=== PATIENT | male | born 1940 | race Caucasian/White ===

== ENCOUNTER 2020-11-18 13:36 | Inpatient (IN) | payer MEDICARE, SELFPAY ==
--- NOTE | ~2020-11-18 | XR_ITS ---
EXAMINATION: XR CHEST CLINICAL INFORMATION: Weakness COMPARISON: Previous chest x-ray September 2018 TECHNIQUE: Frontal view of the chest was obtained. FINDINGS: The cardiac and mediastinal contours are stable. There are increased markings at the lung bases probably representing subsegmental atelectasis. The lungs are otherwise clear. There is no pleural effusion or pneumothorax. There are degenerative changes of the spine. XR/XR chest 1V IMPRESSION: Increased markings at the lung bases probably representing atelectasis.
--- NOTE | ~2020-11-18 | US_ITS ---
EXAMINATION: US VENOUS ULTRASOUND WITH DOPPLER LOWER EXTREMITY, BILATERAL CLINICAL INFORMATION: Bilateral leg pain and swelling. COMPARISON: None TECHNIQUE: Ultrasound of the deep veins is performed from the hip to the calf with compression sonography and color and pulse Doppler assessment. Spectral analysis with color-flow imaging is performed. FINDINGS: RIGHT: There is normal venous compression and respiratory variation and augmented flow. The visualized common femoral vein, superficial femoral vein, profunda femoral vein, popliteal vein, and the trifurcation region shows no evidence of deep venous thrombosis. There is no significant popliteal fossa cyst. Bandaging in the right calf region limits evaluation of right peroneal vein. LEFT: There is normal venous compression and respiratory variation and augmented flow. The visualized common femoral vein, superficial femoral vein, profunda femoral vein, popliteal vein, and the trifurcation region shows no evidence of deep venous thrombosis. There is no significant popliteal fossa cyst. Left renal vein is not seen. If the patient's symptoms persist, followup ultrasound in 5 days 7 days might be of value to exclude proximal propagation from a non-visualized calf vein. US/US venous duplex LE BI IMPRESSION: No DVT demonstrated in the bilateral lower extremity.
--- NOTE | 2020-11-18 13:51 | ED.WEAKNESS ---
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, CHF, HTN, diabetes here with 4 days of odor from wounds, weakness, unable to get up, redness streaking up left leg, nausea Complaint: generalized weakness Onset (ago): day(s) (4) Duration: constant Location: generalized Migration: none Severity: moderate Quality: aching Relieving factors: none Exacerbating factors: movement and exertion Context: recent illness Associated symptoms: fever/chills, loss of appetite, nausea/vomiting and rash Related Data Home Medications Medication Instructions Recorded Confirmed albuterol sulfate 2 inh INHALATION Q4H PRN 11/18/20 11/18/20 atorvastatin 80 mg PO DAILY 11/18/20 11/18/20 budesonide [Pulmicort Flexhaler] 2 puff PO BID 11/18/20 11/18/20 clopidogrel 75 mg PO DAILY 11/18/20 11/18/20 fluticasone propionate 2 spray INTRANASAL DAILY PRN 11/18/20 11/18/20 furosemide 120 mg PO DAILY 11/18/20 11/18/20 insulin aspart U-100 [Novolog 4 - 8 unit SUBCUT DIRECTED 11/18/20 11/18/20 Flexpen U-100 Insulin] insulin detemir U-100 [Levemir 18 unit SUBCUT QAM 11/18/20 11/18/20 FlexTouch U-100 Insuln] insulin detemir U-100 [Levemir 48 unit SUBCUT QPM 11/18/20 11/18/20 FlexTouch U-100 Insuln] losartan 50 mg PO DAILY 11/18/20 11/18/20 metformin 1,000 mg PO DAILY 11/18/20 11/18/20 pantoprazole 40 mg PO DAILY 11/18/20 11/18/20 prednisone 5 mg PO DAILY 11/18/20 11/18/20 sitagliptin [Januvia] 25 mg PO DAILY 11/18/20 11/18/20 Allergies Allergy/AdvReac Type Severity Reaction Status Date / Time No Known Allergies Allergy Verified 11/18/20 14:00 [No Known Allergies*] Review of Systems Review of Systems: Constitutional : No Fever, pos Chills ENT/Mouth : No sore throat, No Rhinorrhea Eyes: No Eye Pain, No Swelling, No Redness Cardiovascular : No Chest Pain, No SOB Respiratory : No Cough, No Sputum Gastrointestinal : pos Nausea, No Vomiting, No Diarrhea, No abdominal Pain Genitourinary : No Dysuria, No Hematuria Musculoskeletal : No joint pain, No Myalgias, No Joint Swelling Skin : pos Skin Lesions, positive skin rash Neuro : pos Weakness, No Numbness, No Headache Psych : No Anxiety, No Depression Heme/Lymph: No Bruising, No Bleeding,No Lymphadenopathy Endocrine : No Polyuria, No Polydipsia All other systems reviewed and are negative [facility] Past Medical History Attestation statement: The following information was validated with the patient. Medical History CHF (congestive heart failure) COPD (chronic obstructive pulmonary disease) Diabetes High cholesterol HTN (hypertension) Myocardial infarct Social History Social History (Updated 11/18/20 @ 14:11 by Eleanor Powell DO) Alcohol intake: never Smoking Status: Former smoker Advance Directives: No Advance Directives Information Provided: No Physical Exam Vital Signs: Vital Signs: Last Vital Signs Temp 99.1 F 11/18/20 13:53 Pulse 88 11/18/20 15:49 Resp 21 H 11/18/20 15:49 BP 129/40 L 11/18/20 15:49 Pulse Ox 97 11/18/20 15:49 Body Mass Index 41.5 Appearance: Alert. Oriented X3. Anxious mild acute distress. Eyes: Pupils equal, round and reactive to light. ENT: Pharynx normal. Neck: Normal inspection. Neck supple. CVS: Normal heart rate and rhythm. Pulses normal. Respiratory: No respiratory distress. Breath sounds decreased throughout Abdomen: Soft and nontender. Obese Buttocks: macerated but no deep wounds, scrotal exam one area of break down upper R scrotum but no erythema no purulence, no pain no crepitus Skin: Skin warm and dry. Normal skin color. Normal skin turgor. Extremities: 3 to 4+ bilateral red warm legs from foot to knees with large ulceration R lateral leg - with dressing noted, foul odor, hot to touch, poor foot care Neuro: Oriented X 3. No motor deficit. No sensory deficit. 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0) % Plt Count (160-400) X10*3/uL MPV (9.4-12.4) fL Immature Gran % (Auto) (0.0-0.4) % Neut % (Auto) (45-73) % Lymph % (Auto) (20-40) % [place] % (Auto) (2-11) % Eos % (Auto) (0-4) % Baso % (Auto) (0-2) % Lymph # (Auto) (1.2-4.9) X10*3/uL [place] # (Auto) (0.1-1.2) X10*3/uL Eos # (Auto) (0.0-0.4) X10*3/uL Baso # (Auto) (0.0-0.2) X10*3/uL Abs Immat Gran (auto) (0.00-0.03) X10*3/uL Absolute Neuts (auto) (2.0-8.3) X10*3/uL Absolute Nucleated RBC (0.0-0.012) X10*3/uL Nucleated RBC % (auto) (0.0-0.2) /100WBC Smear Tech's Comments PT (10.8-13.0) SEC INR (0.9-1.1) APTT (24.1-38.0) SEC VBG pH (7.32-7.43) VBG pCO2 mmHg VBG pO2 mmHg VBG HCO3 (22-26) mmol/L VBG O2 Saturation % VBG Base Excess mmol/L Sodium (135-145) mmol/L Potassium (3.3-5.1) mmol/L Chloride (96-108) mmol/L Carbon Dioxide (22-29) mmol/L Anion Gap (12-20) BUN (9-16) mg/dL Creatinine (0.5-1.4) mg/dL Estim Creat Clear Calc Estimated GFR POC Glucose 201 H (60-115) mg/dL Random Glucose (60-115) mg/dL Lactic Acid 2.6 H* (0.5-2.0) mmol/L Calcium (8.4-10.2) mg/dL Magnesium (1.6-2.6) mg/dL Total Bilirubin (0.0-1.0) mg/dL Direct Bilirubin (0.0-0.5) mg/dL AST (5-37) U/L ALT (0-40) U/L Alkaline Phosphatase (39-117) U/L Total Creatine Kinase (38-174) U/L B-Natriuretic Peptide (<100) pg/mL Total Protein (6.5-8.0) g/dL Albumin (3.5-5.0) g/dL COVID-19 (KAELA) Negative (Negative) COVID-19 Clin Com See Note 11/18/20 11/18/20 11/18/20 Range/Units 14:24 14:24 14:24 WBC 20.3 H (4.8-10.8) X10*3/uL RBC 3.75 L (4.60-5.80) X10*6/uL Hgb 10.6 L (14.0-18.0) g/dl Hct 33.5 L (42-52) % MCV 89.3 (80-98) fL MCH 28.3 (27.0-33.0) pg MCHC 31.6 (31.0-36.0) g/dl RDW 15.2 (11.0-16.0) % Plt Count 272 (160-400) X10*3/uL MPV 9.5 (9.4-12.4) fL Immature Gran % (Auto) 0.5 H (0.0-0.4) % Neut % (Auto) 92.8 H (45-73) % Lymph % (Auto) 2.6 L (20-40) % [place] % (Auto) 4.0 (2-11) % Eos % (Auto) 0.0 (0-4) % Baso % (Auto) 0.1 (0-2) % Lymph # (Auto) 0.5 L (1.2-4.9) X10*3/uL [place] # (Auto) 0.8 (0.1-1.2) X10*3/uL Eos # (Auto) 0.0 (0.0-0.4) X10*3/uL Baso # (Auto) 0.0 (0.0-0.2) X10*3/uL Abs Immat Gran (auto) 0.10 H (0.00-0.03) X10*3/uL Absolute Neuts (auto) 18.8 H (2.0-8.3) X10*3/uL Absolute Nucleated RBC 0.000 (0.0-0.012) X10*3/uL Nucleated RBC % (auto) 0.0 (0.0-0.2) /100WBC Smear Tech's Comments VERIFIED PT (10.8-13.0) SEC INR (0.9-1.1) APTT (24.1-38.0) SEC VBG pH (7.32-7.43) VBG pCO2 mmHg VBG pO2 mmHg VBG HCO3 (22-26) mmol/L VBG O2 Saturation % VBG Base Excess mmol/L Sodium 139 (135-145) mmol/L Potassium 4.1 (3.3-5.1) mmol/L Chloride 100 (96-108) mmol/L Carbon Dioxide 26 (22-29) mmol/L Anion Gap 17 (12-20) BUN 55 H (9-16) mg/dL Creatinine 2.41 H (0.5-1.4) mg/dL Estim Creat Clear Calc 34.4 Estimated GFR 26 POC Glucose (60-115) mg/dL Random Glucose 236 H (60-115) mg/dL Lactic Acid (0.5-2.0) mmol/L Calcium 8.6 (8.4-10.2) mg/dL Magnesium (1.6-2.6) mg/dL Total Bilirubin (0.0-1.0) mg/dL Direct Bilirubin (0.0-0.5) mg/dL AST (5-37) U/L ALT (0-40) U/L Alkaline Phosphatase (39-117) U/L Total Creatine Kinase 500 H (38-174) U/L B-Natriuretic Peptide 242 H (<100) pg/mL Total Protein (6.5-8.0) g/dL Albumin (3.5-5.0) g/dL COVID-19 (KAELA) (Negative) COVID-19 Clin Com 11/18/20 11/18/20 11/18/20 Range/Units 14:24 14:24 14:27 WBC (4.8-10.8) X10*3/uL RBC (4.60-5.80) X10*6/uL Hgb (14.0-18.0) g/dl Hct (42-52) % MCV (80-98) fL MCH (27.0-33.0) pg MCHC (31.0-36.0) g/dl RDW (11.0-16.0) % Plt Count (160-400) X10*3/uL MPV (9.4-12.4) fL Immature Gran % (Auto) (0.0-0.4) % Neut % (Auto) (45-73) % Lymph % (Auto) (20-40) % [place] % (Auto) (2-11) % Eos % (Auto) (0-4) % Baso % (Auto) (0-2) % Lymph # (Auto) (1.2-4.9) X10*3/uL [place] # (Auto) (0.1-1.2) X10*3/uL Eos # (Auto) (0.0-0.4) X10*3/uL Baso # (Auto) (0.0-0.2) X10*3/uL Abs Immat Gran (auto) (0.00-0.03) X10*3/uL Absolute Neuts (auto) (2.0-8.3) X10*3/uL Absolute Nucleated RBC (0.0-0.012) X10*3/uL Nucleated RBC % (auto) (0.0-0.2) /100WBC Smear Tech's Comments PT 17.6 H (10.8-13.0) SEC INR 1.5 H (0.9-1.1) APTT 34.9 (24.1-38.0) SEC VBG pH 7.41 (7.32-7.43) VBG pCO2 37 mmHg VBG pO2 49 mmHg VBG HCO3 24 (22-26) mmol/L VBG O2 Saturation 76.0 % VBG Base Excess 0.0 mmol/L Sodium (135-145) mmol/L Potassium (3.3-5.1) mmol/L Chloride (96-108) mmol/L Carbon Dioxide (22-29) mmol/L Anion Gap (12-20) BUN (9-16) mg/dL Creatinine (0.5-1.4) mg/dL Estim Creat Clear Calc Estimated GFR POC Glucose (60-115) mg/dL Random Glucose (60-115) mg/dL Lactic Acid (0.5-2.0) mmol/L Calcium (8.4-10.2) mg/dL Magnesium 1.9 (1.6-2.6) mg/dL Total Bilirubin 1.7 H (0.0-1.0) mg/dL Direct Bilirubin 0.7 H (0.0-0.5) mg/dL AST 36 (5-37) U/L ALT 22 (0-40) U/L Alkaline Phosphatase 110 (39-117) U/L Total Creatine Kinase (38-174) U/L B-Natriuretic Peptide (<100) pg/mL Total Protein 6.9 (6.5-8.0) g/dL Albumin 3.2 L (3.5-5.0) g/dL COVID-19 (KAELA) (Negative) COVID-19 Clin Com ECG Data Attestation: I personally reviewed and interpreted this ECG as follows: ECG interpretation date: 11/18/20 ECG interpretation time: 14:20 Interpretation: Rate: 91 Rhythm: NSR [place]: left Normal P waves. Normal SHEREE. Normal QRS complex. ST T wave : no HELADIO, artifact noted, nonspecific qTC: normal prior studies: none available The study has been interpreted contemporaneously by me. . Discharge Plan Discharge Clinical Impression: ELSA (acute kidney injury), Acidosis, lactic Leukocytosis Qualifiers: Leukocytosis type: unspecified Qualified Code(s): D72.829 - Elevated white blood cell count, unspecified Patient Disposition: Admitted As Inpatient
[2020-11-18 13:53] VITALS: BP 130/50; BP 136/63; PULSE 90; RESP 16; TEMP 37.3; O2SAT 89; O2SAT 90; BMI 41.5
--- NOTE | 2020-11-18 13:57 | ECG_ITS ---
Test Reason : SEPTIC Blood Pressure : / mmHG Vent. Rate : 091 BPM Atrial Rate : 091 BPM P-R Int : 178 ms QRS Dur : 110 ms QT Int : 382 ms P-R-T Axes : 079 -14 031 degrees QTc Int : 469 ms Normal sinus rhythm Inferior-posterior infarct (cited on or before 01-OCT-2018) Abnormal ECG When compared with ECG of 01-OCT-2018 16:27, Vent. rate has increased BY 39 BPM Referred By: Eleanor Powell Electronically Signed By:Jose J Aldrich
[2020-11-18 13:58] LABS: Glucose, Whole Blood 201 mg/dL (60-115)
--- NOTE | 2020-11-18 14:22 | PC.NURSE ---
Pt difficult stick- this rn unable to obtain iv access or labs, second rn at bedside
[2020-11-18 14:33] LABS: Venous Blood Gas Refer to POC result
[2020-11-18 14:34] LABS: Basophils Percent Auto 0.1 % (0-2); Hematocrit 33.5 % (42-52); Hemoglobin 10.6 g/dl (14.0-18.0); Imm Gran Pct Auto 0.5 % (0.0-0.4); Lymphocytes Absolute Auto 0.5 X10*3/uL (1.2-4.9); Lymphocytes Percent Auto 2.6 % (20-40); MANUAL DIFF FLAG SCAN; Mean Corpuscular HGB Conc 31.6 g/dl (31.0-36.0); Mean Corpuscular Hemoglobin 28.3 pg (27.0-33.0); Mean Corpuscular Volume 89.3 fL (80-98); Mean Platelet Volume 9.5 fL (9.4-12.4); Monocytes Absolute Auto 0.8 X10*3/uL (0.1-1.2); Neutrophils Absolute Auto 18.8 X10*3/uL (2.0-8.3); Neutrophils Percent Auto 92.8 % (45-73); Platelet Count 272 X10*3/uL (160-400); Red Blood Count 3.75 X10*6/uL (4.60-5.80); Red Cell Distribution Width 15.2 % (11.0-16.0); SCAN SMEAR FLAG 1; White Blood Count 20.3 X10*3/uL (4.8-10.8)
[2020-11-18 14:34] LABS: VBG HCO3 24 mmol/L (22-26); VBG pCO2 37 mmHg; VBG pH 7.41 (7.32-7.43); VBG pO2 49 mmHg
[2020-11-18] MEDS: Piperacillin Sodium/Tazobactam 3.375 GM in 0.9 % Sodium Chloride 50 ML IV ×2 (14:40→19:37)
[2020-11-18] MEDS: ondansetron HCL 4 MG/2 ML VIAL IVPUSH ×2 (14:40→21:32)
--- NOTE | 2020-11-18 14:40 | PC.NURSE ---
Pt very difficult stick- multiple techs at [facility] eto obtain second set of blood cultures.
[2020-11-18 14:45] LABS: COVID-19 Test Negative (Negative)
[2020-11-18 14:46] VITALS: BP 128/74; PULSE 90; RESP 16; O2SAT 94
--- NOTE | 2020-11-18 14:46 | PC.NURSE ---
phlebotomy called for second set of cultures.
[2020-11-18 14:52] LABS: Lactic Acid 2.6 mmol/L (0.5-2.0)
[2020-11-18 14:55] LABS: Alanine Aminotransferase 22 U/L (0-40); Albumin Level 3.2 g/dL (3.5-5.0); Alkaline Phosphatase 110 U/L (39-117); Aspartate Amino Transferase 36 U/L (5-37); Bilirubin Direct 0.7 mg/dL (0.0-0.5); Bilirubin Total 1.7 mg/dL (0.0-1.0); Magnesium 1.9 mg/dL (1.6-2.6); Total Protein 6.9 g/dL (6.5-8.0)
[2020-11-18 14:57] LABS: Anion Gap 17 (12-20); Blood Urea Nitrogen 55 mg/dL (9-16); Calcium 8.6 mg/dL (8.4-10.2); Carbon Dioxide 26 mmol/L (22-29); Chloride 100 mmol/L (96-108); Creatinine Clr Calc Pharmacy 34.4; Estimated Glomerular Filt Rate 26; Glucose Random 236 mg/dL (60-115); Potassium 4.1 mmol/L (3.3-5.1); Sodium 139 mmol/L (135-145)
[2020-11-18 15:02] LABS: B Type Natriuretic Peptide 242 pg/mL (<100)
[2020-11-18 15:16] LABS: INTERNATIONAL NORM RATIO 1.5 (0.9-1.1); Prothrombin Time 17.6 SEC (10.8-13.0)
--- NOTE | 2020-11-18 15:16 | PC.NURSE ---
Pt taken to u/s- will medicate upon return
[2020-11-18 15:21] LABS: Partial Thromboplastin Time 34.9 SEC (24.1-38.0); SLIDE REVIEW VERIFIED
[2020-11-18 15:49] VITALS: BP 129/40; PULSE 88; RESP 21; O2SAT 97
[2020-11-18] MEDS: 0.9 % Sodium Chloride 500 ML 250 ML IV (16:13)
[2020-11-18] MEDS: vancomycin HCL 1,000 MG, vancomycin HCL 750 MG in 0.9 % Sodium Chloride 500 ML 267.5 MG IV (16:13)
[2020-11-18 16:29] LABS: Reflex Lactate? Lactic Acid Added
--- NOTE | 2020-11-18 16:45 | PC.NURSE ---
Called phlebotomy for repeat lactic.
--- NOTE | 2020-11-18 17:22 | PM.IMHP ---
History of Present Illness Date of Service: 11/18/20 <Sierra Menchaca NP - Last Filed: 11/18/20 17:38> Chief Complaint: Weakness <Sierra Menchaca NP - Last Filed: 11/18/20 17:38> 72-year-old man presented to the ER with complaints of worsening weakness over the last several days. He denies fever, chills, nausea, vomiting, diarrhea. He does have a history of bilateral lower extremity wounds and has visiting nurse who changes the dressings. He has been having difficulty even getting up and has noticed red streaking up both of his legs. He has a large wound malodorous wound to his right liriano area with erythema and edema to both feet. 20.3, no fever. He had 1 episode of hypoxia with oxygen saturation of 89% however this did improve to 97% with 2 L of oxygen. Chest x-ray showed some atelectasis no consolidation or effusion. Venous duplex ultrasound was negative for DVT to bilateral lower extremities. Was noted to be elevated 2.41. Total creatinine kinase 500, BNP 242 with no overt heart failure. Coronavirus PCR negative, Patient was started on vancomycin, Zosyn. Have 3 admitted for further management and treatment of severe sepsis secondary to cellulitis. <Sierra Menchaca NP - Last Filed: 11/18/20 17:38> Review of Systems Review of Systems: Denies any recent fever chills or decrease in appetite respiratory denies any shortness of breath coverage production cardiovascular denies chest pain gastrointestinal denies any dysphagia abdominal pain nausea vomiting or diarrhea genitourinary denies any dysuria frequency or hematuria musculoskeletal denies any joint pain or swelling neuropsych denies any weakness or seizures Pain to lower extremities with redness extending up to his thighs, drainage to right lower extremity wound all other systems reviewed are negative <Sierra Menchaca NP - Last Filed: 11/18/20 17:38> [facility] Medical History: Medical History (Updated 11/18/20 @ 21:23 by Barry Dozier MD) CHF (congestive heart failure) COPD (chronic obstructive pulmonary disease) Diabetes Eschar of wound bed High cholesterol HTN (hypertension) Myocardial infarct <Sierra Menchaca NP - Last Filed: 11/18/20 17:38> Pertinent family history: No cardiac disease according to the record <Sierra Menchaca NP - Last Filed: 11/18/20 17:38> Social History: Social History Household Members: None Housing: House Do you presently have visiting nurse or other home services: Yes Alcohol intake: never Smoking Status: Former smoker Years Smoked: 5-6 Smoked in Last 30 Days: No Smoking Quit Date: 50 years ago Patient Interested in Nicotine Replacement: No Patient Given Instructions on How to Stop Smoking: No Second Hand Smoke Exposure: No Use of substances other than those prescribed or required for medical reasons: No Have you been hit, kicked, punched, or otherwise hurt by someone within the past year? If so, by whom?: No Do you feel safe in your current relationship?: No Current Relationship Is there a partner from a previous relationship who is making you feel unsafe now?: No Are you made to feel afraid or neglected: No Advance Directives: No Advance Directives Information Provided: No Do you have thoughts of harming others: None Do you have a plan to hurt others: No Plan Recently lost weight without trying: No Eating poorly because of decreased appetite: No Nutrition Risks: No Nutritional Risk Poor oral hygiene: No <Sierra Menchaca NP - Last Filed: 11/18/20 17:38> Meds Allergies/Adverse reactions: Allergies Allergy/AdvReac Type Severity Reaction Status Date / Time No Known Allergies Allergy Verified 11/18/20 14:00 [No Known Allergies*] <Sierra Menchaca NP - Last Filed: 11/18/20 17:38> Active Medications: Current Medications Generic Name Dose Route Start Last Admin Trade Name Freq PRN Reason Stop Dose Admin Pharmacy Consult 1 each 11/18/20 13:56 Consult Rx Perform Med Rec MISCELLANE ONCE PRN Consult order <Sierra Menchaca NP - Last Filed: 11/18/20 17:38> Home medications: Home Medications Medication Instructions Recorded Confirmed Last Taken Type albuterol sulfate 2 inh INHALATION Q4H PRN 11/18/20 11/18/20 Unknown History atorvastatin 80 mg PO DAILY 11/18/20 11/18/20 11/17/20 17:00 History budesonide [Pulmicort Flexhaler] 2 puff PO BID 11/18/20 11/18/20 11/17/20 16:00 History clopidogrel 75 mg PO DAILY 11/18/20 11/18/20 11/17/20 16:00 History fluticasone propionate 2 spray INTRANASAL DAILY PRN 11/18/20 11/18/20 Unknown History furosemide 120 mg PO DAILY 11/18/20 11/18/20 11/17/20 16:00 History insulin aspart U-100 [Novolog 4 - 8 unit SUBCUT DIRECTED 11/18/20 11/18/20 11/17/20 History Flexpen U-100 Insulin] insulin detemir U-100 [Levemir 18 unit SUBCUT QAM 11/18/20 11/18/20 11/17/20 History FlexTouch U-100 Insuln] insulin detemir U-100 [Levemir 48 unit SUBCUT QPM 11/18/20 11/18/20 11/17/20 16:00 History FlexTouch U-100 Insuln] losartan 50 mg PO DAILY 11/18/20 11/18/20 11/17/20 History metformin 1,000 mg PO DAILY 11/18/20 11/18/20 11/17/20 History pantoprazole 40 mg PO DAILY 11/18/20 11/18/20 11/17/20 History prednisone 5 mg PO DAILY 11/18/20 11/18/20 11/17/20 History sitagliptin [Januvia] 25 mg PO DAILY 11/18/20 11/18/20 11/17/20 History <Sierra Menchaca NP - Last Filed: 11/18/20 17:38> Physical Exam Vital Signs and Narrative: Vital Signs: Last Vital Signs Temp 99.1 F 11/18/20 13:53 Pulse 88 11/18/20 15:49 Resp 21 H 11/18/20 15:49 BP 129/40 L 11/18/20 15:49 Pulse Ox 97 11/18/20 15:49 Body Mass Index 41.5 <Sierra Menchaca NP - Last Filed: 11/18/20 17:38> Appearing in no acute distress head is normocephalic atraumatic eyes pupils are PERRLA sclera is anicteric mouth throat mucous membranes are intact and moist neck is supple no lymphadenopathy, no JVD noted lung sounds are clear to auscultation heart regular rate rhythm, clear S1, S2 positive bowel sounds, abdomen is soft, nontender neuro patient is alert x3, no focal deficits Left lower extremity with redness and erythema to his foot streaking of redness all the way up to his thighs. Right lower extremity with large approximately 4-1/2 inch by 4 in round wound bed surrounding skin pain with to hand, green drainage very malodorous <Sierra Menchaca NP - Last Filed: 11/18/20 17:38> Results Labs CBC and Chem 7: : 11/18/20 14:24 11/18/20 14:24 <Sierra Menchaca NP - Last Filed: 11/18/20 17:38> Labs: Laboratory Results - last 24 hr 11/18/20 11/18/20 11/18/20 13:55 14:20 14:23 MCV MCH MCHC RDW Plt Count MPV Immature Gran % (Auto) Neut % (Auto) Lymph % (Auto) [place] % (Auto) Eos % (Auto) Baso % (Auto) Lymph # (Auto) [place] # (Auto) Eos # (Auto) Baso # (Auto) Abs Immat Gran (auto) Absolute Neuts (auto) Absolute Nucleated RBC Nucleated RBC % (auto) Smear Tech's Comments PT INR APTT VBG pH VBG pCO2 VBG pO2 VBG HCO3 VBG O2 Saturation VBG Base Excess Anion Gap Estim Creat Clear Calc Estimated GFR POC Glucose 201 H Random Glucose Lactic Acid 2.6 H* Calcium Magnesium Total Bilirubin Direct Bilirubin AST ALT Alkaline Phosphatase Total Creatine Kinase B-Natriuretic Peptide Total Protein Albumin COVID-19 (KAELA) Negative COVID-19 Clin Com See Note 11/18/20 11/18/20 11/18/20 14:24 14:24 14:24 MCV 89.3 MCH 28.3 MCHC 31.6 RDW 15.2 Plt Count 272 MPV 9.5 Immature Gran % (Auto) 0.5 H Neut % (Auto) 92.8 H Lymph % (Auto) 2.6 L [place] % (Auto) 4.0 Eos % (Auto) 0.0 Baso % (Auto) 0.1 Lymph # (Auto) 0.5 L [place] # (Auto) 0.8 Eos # (Auto) 0.0 Baso # (Auto) 0.0 Abs Immat Gran (auto) 0.10 H Absolute Neuts (auto) 18.8 H Absolute Nucleated RBC 0.000 Nucleated RBC % (auto) 0.0 Smear Tech's Comments VERIFIED PT INR APTT VBG pH VBG pCO2 VBG pO2 VBG HCO3 VBG O2 Saturation VBG Base Excess Anion Gap 17 Estim Creat Clear Calc 34.4 Estimated GFR 26 POC Glucose Random Glucose 236 H Lactic Acid Calcium 8.6 Magnesium Total Bilirubin Direct Bilirubin AST ALT Alkaline Phosphatase Total Creatine Kinase 500 H B-Natriuretic Peptide 242 H Total Protein Albumin COVID-19 (KAELA) COVID-19 Clin Com 11/18/20 11/18/20 11/18/20 14:24 14:24 14:27 MCV MCH MCHC RDW Plt Count MPV Immature Gran % (Auto) Neut % (Auto) Lymph % (Auto) [place] % (Auto) Eos % (Auto) Baso % (Auto) Lymph # (Auto) [place] # (Auto) Eos # (Auto) Baso # (Auto) Abs Immat Gran (auto) Absolute Neuts (auto) Absolute Nucleated RBC Nucleated RBC % (auto) Smear Tech's Comments PT 17.6 H INR 1.5 H APTT 34.9 VBG pH 7.41 VBG pCO2 37 VBG pO2 49 VBG HCO3 24 VBG O2 Saturation 76.0 VBG Base Excess 0.0 Anion Gap Estim Creat Clear Calc Estimated GFR POC Glucose Random Glucose Lactic Acid Calcium Magnesium 1.9 Total Bilirubin 1.7 H Direct Bilirubin 0.7 H AST 36 ALT 22 Alkaline Phosphatase 110 Total Creatine Kinase B-Natriuretic Peptide Total Protein 6.9 Albumin 3.2 L COVID-19 (KAELA) COVID-19 Clin Com <Sierra Menchaca NP - Last Filed: 11/18/20 17:38> Imaging Radiologist's Impressions: Impressions Venous Duplex 11/18/20 13:56 IMPRESSION: No DVT demonstrated in the bilateral lower extremity. Chest X-Ray 11/18/20 13:58 IMPRESSION: Increased markings at the lung bases probably representing atelectasis. <Sierra Menchaca NP - Last Filed: 11/18/20 17:38> Assessment and Plan (1) Cellulitis: Status: Acute <Sierra Menchaca NP - Last Filed: 11/18/20 17:38> Addendum to documentation by midlevel I saw and examined the patient and participated in the [place]win portion of the E/M service. I agree with the history and exam as documented by [employer] CONSULTANT. Exam: open wound and redness of legs--see pictures. Will admit for IV Abx and surgical consultation for debridmentand. Otherwise, I agree with assessment and plan as outlined in the H and P. <Thiago Tavares MD - Last Filed: 11/18/20 22:48> (2) Severe sepsis: Status: Acute <Sierra Menchaca NP - Last Filed: 11/18/20 17:38> 80-year-old man admitted with severe sepsis secondary to cellulitis. He has had lower extremity wounds for some time and has been having visiting nurse changing his dressings. He has noticed some increased odor to the right liriano wound and streaking of redness of both of his legs. He has also noticed some increased weakness and difficulty with ambulation. Severe sepsis. Leukocytosis, tachypnea, lactic acidosis. -Follow blood cultures. -Treat infection Cellulitis. Ongoing, appears to be infected -infectious disease consultation -surgical consultation for possible debridement -vancomycin, Zosyn -good wound care and cleaning ELSA on CKD. Likely related to dehydration in light of nausea -gentle IV fluids -follow BMP -if no improvement noted consider consulting Nephrology Normocytic anemia. No signs of bleeding. -trend CBC History of diastolic heart failure. No overt failure at this time -continue Diabetes mellitus -sliding scale, ADA diet -hold metformin due to ELSA Hypertension. Stable blood pressure -hold losartan due to ELSA DVT prophylaxis with heparin Discussed with Dr. Tavares Full code <Sierra Menchaca NP - Last Filed: 11/18/20 17:38>
[2020-11-18 17:39] LABS: ~Lactic Acid-LAB USE ONLY 2.2 mmol/L (0.5-2.0)
--- NOTE | 2020-11-18 17:50 | PC.NURSE ---
Pressure wounds to bottuck, coccyx, and scrotum. Areas cleaned, foam dressing applied, barrier cream applied to other vannessa areas- see impaired skin integrity documentation.
[2020-11-18 18:56] VITALS: BP 134/36; PULSE 90; RESP 20; O2SAT 97
[2020-11-18 19:12] LABS: Reflex Lactate? 2 Y
[2020-11-18 19:15] LABS: Glucose Urine UA NEG (NEG); Leukocyte Esterase Urine NEG (NEG); Nitrite Urine NEG (NEG); PH 5.5 (5.0-8.0); Specific Gravity - Urine 1.025 (1.005-1.025); Urine Blood 1+ (NEG); Urine Ketones NEG (NEG); Urine Protein TRACE MG/DL (NEG-TRACE)
[2020-11-18 19:18] LABS: Appearance Urine HAZY; Color Urine YELLOW
[2020-11-18 19:28] VITALS: BP 140/63; PULSE 90; RESP 16; TEMP 36.6; O2SAT 98
[2020-11-18 19:32] LABS: Bacteria Urine 1+ /LPF; Mucus Urine 1+ /LPF; Squamous Epithelial Cell Urine 1+ /LPF
[2020-11-18] MEDS: 0.9 % Sodium Chloride 1,000 ML 75 ML IVCONT (19:37)
[2020-11-18] MEDS: 0.9 % Sodium Chloride Flush 3 ML SYRINGE IVFLUSH (19:37)
[2020-11-18] MEDS: Heparin Sodium,Porcine 5,000 UNIT/ML VIAL 5000 UNIT SUBCUT (19:37)
[2020-11-18 20:08] LABS: Glucose, Whole Blood 192 mg/dL (60-115)
[2020-11-18] MEDS: Insulin Glargine,Hum.rec.anlog 100 UNIT/ML 10 ML VIAL 33 UNIT SUBCUT (20:28)
[2020-11-18 20:39] LABS: ~Lactic Acid-LAB USE ONLY 1.7 mmol/L (0.5-2.0)
[2020-11-18] MEDS: Morphine Sulfate 2 MG/ML CARTRIDGE IVPUSH (21:12)
--- NOTE | 2020-11-18 21:16 | PM.CNGS ---
History of Present Illness Consult details Consult date: 11/18/20 Narrative: 80M referred for a RLE wound. He was sent to the ED today because of generalized weakness. He has multiple medical problems including DM, diastolic heart failure and poor baseline level of acitivity. He says he has had multiple wounds on his lower extremities, back as well as his scrotum which he says are all chronic. He says he used to be seen at [facility] but now has a VN seeing him at home 3 times a week. He says he used to be able to walk with a cane but for several days now has been bedbound due to weakness. He lives along and does not have anyone else helping with care. He denies fever or chills. He apparantly has been incontinent of stool and urine. Review of Systems Constitutional: Constitutional: Denies chills, Denies fever(s) and Reports weakness Cardiovascular: Cardiovascular: Denies chest pain, Denies dyspnea and Reports dyspnea on exertion Respiratory: Respiratory: Denies cough, Denies dyspnea and Reports dyspnea on exertion Gastrointestinal: Gastrointestinal: Denies hematochezia, Denies change in bowel habits, Reports fecal incontinence and Reports loose stools Genitourinary: Genitourinary: Denies hematuria, Denies difficulty urinating and Reports urinary incontinence Musculoskeletal: Musculoskeletal: Denies back pain and Denies limited range of motion Neurologic: Denies focal weakness, Denies convulsions and Reports weakness Psychiatric: Psychiatric: Denies depression and Denies mood swings PMFSH Past Medical History Medical History CHF (congestive heart failure) COPD (chronic obstructive pulmonary disease) Diabetes Eschar of wound bed High cholesterol HTN (hypertension) Myocardial infarct Social History Social History Household Members: None Housing: House Do you presently have visiting nurse or other home services: Yes Alcohol intake: never Smoking Status: Former smoker Years Smoked: 5-6 Smoked in Last 30 Days: No Smoking Quit Date: 50 years ago Patient Interested in Nicotine Replacement: No Patient Given Instructions on How to Stop Smoking: No Second Hand Smoke Exposure: No Use of substances other than those prescribed or required for medical reasons: No Currently Displaying Signs/Symptoms of Drug Intoxication Withdrawal: No Have you been hit, kicked, punched, or otherwise hurt by someone within the past year? If so, by whom?: No Do you feel safe in your current relationship?: No Current Relationship Is there a partner from a previous relationship who is making you feel unsafe now?: No Are you made to feel afraid or neglected: No Advance Directives: No Advance Directives Information Provided: No Do you have thoughts of harming others: None Do you have a plan to hurt others: No Plan Recently lost weight without trying: No Eating poorly because of decreased appetite: No Nutrition Risks: No Nutritional Risk Poor oral hygiene: No service: Yes Current occupational status: unemployed Meds Allergies Allergy/AdvReac Type Severity Reaction Status Date / Time No Known Allergies Allergy Verified 11/18/20 14:00 [No Known Allergies*] Active Medications: Current Medications Generic Name Dose Route Start Last Admin Trade Name Freq PRN Reason Stop Dose Admin Acetaminophen 650 mg 11/18/20 17:42 Acetaminophen 325 Mg Tablet PO Q6H PRN Pain, Mild (Pain Scale 1-3) Albuterol Sulfate 2 puff 11/18/20 17:42 Albuterol Sulfate 90 Mcg 8 Gm Inhaler INHALE Q4H PRN Shortness Of Breath Or Wheezing Atorvastatin Calcium 80 mg 11/19/20 09:00 Atorvastatin Calcium 80 Mg Tablet PO DAILY [facility] Budesonide 2 puff 11/18/20 20:00 Budesonide 180 Mcg Aer.Pow.Ba INHALE RBID [facility] Clopidogrel Bisulfate 75 mg 11/19/20 09:00 Clopidogrel Bisulfate 75 Mg Tablet PO DAILY [facility] Fluticasone Propionate 2 spray 11/18/20 17:42 Fluticasone Propionate Nasal 16 Gm [place] NOSTRIL-B DAILY PRN congestion Heparin Sodium (Porcine) 5,000 unit 11/18/20 18:00 11/18/20 19:37 Heparin Sodium,Porcine 5,000 Unit/Ml Vial SUBCUT 5,000 unit Q12H [facility] Administration Piperacillin Sod/Tazobactam 50 mls @ 100 mls/hr 11/18/20 19:00 11/18/20 20:27 Sod 3.375 gm/ Sodium Chloride IV Infused Q6H [facility] Infusion Sodium Chloride 1,000 mls @ 75 mls/hr 11/18/20 18:30 11/18/20 19:37 Ns IVCONT 75 mls/hr .[id number] [facility] Administration Vancomycin HCl 1,000 mg/ 270 mls @ 270 mls/hr 11/18/20 16:00 11/18/20 19:34 Sodium Chloride IV Not Given Q24H [facility] Insulin Glargine 12 unit 11/19/20 09:00 Insulin Glargine,Hum.Rec.Anlog 100 Unit/Ml 10 Ml Vial SUBCUT DAILY [facility] Insulin Glargine 33 unit 11/18/20 21:00 11/18/20 20:28 Insulin Glargine,Hum.Rec.Anlog 100 Unit/Ml 10 Ml Vial SUBCUT 33 unit BEDTIME [facility] Administration Omeprazole 20 mg 11/19/20 06:30 Omeprazole 20 Mg Capsule.Dr PO DAILY@0630 [facility] Ondansetron HCl 4 mg 11/18/20 17:42 Ondansetron Hcl 4 Mg/2 Ml Vial IVPUSH Q8H PRN Nausea and Vomiting Pharmacy Consult 1 each 11/18/20 13:56 Consult Rx Perform Med Rec MISCELLANE ONCE PRN Consult order Pharmacy Consult 1 each 11/18/20 17:42 Consult Rx Vancomycin Dosing MISCELLANE DAILY PRN Consult order Prednisone 5 mg 11/19/20 09:00 Prednisone 5 Mg Tablet PO DAILY [facility] Sitagliptin Phosphate 25 mg 11/19/20 09:00 Sitagliptin Phosphate 25 Mg Tablet PO DAILY [facility] Sodium Chloride 3 ml 11/19/20 00:00 11/18/20 19:37 0.9 % Sodium Chloride Flush 3 Ml Syringe IVFLUSH 3 ml QSHIFT [facility] Administration Home Medications Medication Instructions Recorded Confirmed Last Taken Type albuterol sulfate 2 inh INHALATION Q4H PRN 11/18/20 11/18/20 Unknown History atorvastatin 80 mg PO DAILY 11/18/20 11/18/20 11/17/20 17:00 History budesonide [Pulmicort Flexhaler] 2 puff PO BID 11/18/20 11/18/20 11/17/20 16:00 History clopidogrel 75 mg PO DAILY 11/18/20 11/18/20 11/17/20 16:00 History fluticasone propionate 2 spray INTRANASAL DAILY PRN 11/18/20 11/18/20 Unknown History furosemide 120 mg PO DAILY 11/18/20 11/18/20 11/17/20 16:00 History insulin aspart U-100 [Novolog 4 - 8 unit SUBCUT DIRECTED 11/18/20 11/18/20 11/17/20 History Flexpen U-100 Insulin] insulin detemir U-100 [Levemir 18 unit SUBCUT QAM 11/18/20 11/18/20 11/17/20 History FlexTouch U-100 Insuln] insulin detemir U-100 [Levemir 48 unit SUBCUT QPM 11/18/20 11/18/20 11/17/20 16:00 History FlexTouch U-100 Insuln] losartan 50 mg PO DAILY 11/18/20 11/18/20 11/17/20 History metformin 1,000 mg PO DAILY 11/18/20 11/18/20 11/17/20 History pantoprazole 40 mg PO DAILY 11/18/20 11/18/20 11/17/20 History prednisone 5 mg PO DAILY 11/18/20 11/18/20 11/17/20 History sitagliptin [Januvia] 25 mg PO DAILY 11/18/20 11/18/20 11/17/20 History Physical Exam Vital Signs: Vital Signs: Last Vital Signs Temp 97.8 F 11/18/20 19:28 Pulse 90 11/18/20 19:28 Resp 16 11/18/20 19:28 BP 140/63 H 11/18/20 19:28 Pulse Ox 98 11/18/20 19:28 Body Mass Index 41.5 Const: Other: appears very frail, morbidly obese General: no acute distress Orientation/consciousness: patient oriented x3 Neck: Neck: Yes no lymphadenopathy Resp: Auscultation: clear to auscultation bilaterally Cardio: Rhythm: regular rhythm GI: Palpation (GI): Soft to palpation, nontender and no guarding Skin: Other: skin tea on scrotum, rash on groin c/w fungal intertigo Neuro: General: patient oriented x3 Extrem: Other: wound on lateral aspect of lower leg, 12 cm x 9 cm, with grayish eschar which appears to be full-thickness of the skin; cellulitic changes on left foot; bilateral lower extremity edema, chronic with trophic changes Results Labs Result diagrams: 11/21/20 05:59 11/21/20 05:59 Labs: Abnormal lab results 11/18/20 11/18/20 11/18/20 Range/Units 13:55 14:23 14:24 WBC 20.3 H (4.8-10.8) X10*3/uL RBC 3.75 L (4.60-5.80) X10*6/uL Hgb 10.6 L (14.0-18.0) g/dl Hct 33.5 L (42-52) % Immature Gran % (Auto) 0.5 H (0.0-0.4) % Neut % (Auto) 92.8 H (45-73) % Lymph % (Auto) 2.6 L (20-40) % Lymph # (Auto) 0.5 L (1.2-4.9) X10*3/uL Abs Immat Gran (auto) 0.10 H (0.00-0.03) X10*3/uL Absolute Neuts (auto) 18.8 H (2.0-8.3) X10*3/uL PT (10.8-13.0) SEC INR (0.9-1.1) BUN (9-16) mg/dL Creatinine (0.5-1.4) mg/dL POC Glucose 201 H (60-115) mg/dL Random Glucose (60-115) mg/dL Lactic Acid 2.6 H* (0.5-2.0) mmol/L Lactic Acid Fup @ 2Hr (0.5-2.0) mmol/L Total Bilirubin (0.0-1.0) mg/dL Direct Bilirubin (0.0-0.5) mg/dL Total Creatine Kinase (38-174) U/L B-Natriuretic Peptide (<100) pg/mL Albumin (3.5-5.0) g/dL Urine Blood (NEG) 11/18/20 11/18/20 11/18/20 Range/Units 14:24 14:24 14:24 WBC (4.8-10.8) X10*3/uL RBC (4.60-5.80) X10*6/uL Hgb (14.0-18.0) g/dl Hct (42-52) % Immature Gran % (Auto) (0.0-0.4) % Neut % (Auto) (45-73) % Lymph % (Auto) (20-40) % Lymph # (Auto) (1.2-4.9) X10*3/uL Abs Immat Gran (auto) (0.00-0.03) X10*3/uL Absolute Neuts (auto) (2.0-8.3) X10*3/uL PT 17.6 H (10.8-13.0) SEC INR 1.5 H (0.9-1.1) BUN 55 H (9-16) mg/dL Creatinine 2.41 H (0.5-1.4) mg/dL POC Glucose (60-115) mg/dL Random Glucose 236 H (60-115) mg/dL Lactic Acid (0.5-2.0) mmol/L Lactic Acid Fup @ 2Hr (0.5-2.0) mmol/L Total Bilirubin (0.0-1.0) mg/dL Direct Bilirubin (0.0-0.5) mg/dL Total Creatine Kinase 500 H (38-174) U/L B-Natriuretic Peptide 242 H (<100) pg/mL Albumin (3.5-5.0) g/dL Urine Blood (NEG) 11/18/20 11/18/20 11/18/20 Range/Units 14:24 17:08 18:58 WBC (4.8-10.8) X10*3/uL RBC (4.60-5.80) X10*6/uL Hgb (14.0-18.0) g/dl Hct (42-52) % Immature Gran % (Auto) (0.0-0.4) % Neut % (Auto) (45-73) % Lymph % (Auto) (20-40) % Lymph # (Auto) (1.2-4.9) X10*3/uL Abs Immat Gran (auto) (0.00-0.03) X10*3/uL Absolute Neuts (auto) (2.0-8.3) X10*3/uL PT (10.8-13.0) SEC INR (0.9-1.1) BUN (9-16) mg/dL Creatinine (0.5-1.4) mg/dL POC Glucose (60-115) mg/dL Random Glucose (60-115) mg/dL Lactic Acid (0.5-2.0) mmol/L Lactic Acid Fup @ 2Hr 2.2 H* (0.5-2.0) mmol/L Total Bilirubin 1.7 H (0.0-1.0) mg/dL Direct Bilirubin 0.7 H (0.0-0.5) mg/dL Total Creatine Kinase (38-174) U/L B-Natriuretic Peptide (<100) pg/mL Albumin 3.2 L (3.5-5.0) g/dL Urine Blood 1+ H (NEG) 11/18/20 Range/Units 19:27 WBC (4.8-10.8) X10*3/uL RBC (4.60-5.80) X10*6/uL Hgb (14.0-18.0) g/dl Hct (42-52) % Immature Gran % (Auto) (0.0-0.4) % Neut % (Auto) (45-73) % Lymph % (Auto) (20-40) % Lymph # (Auto) (1.2-4.9) X10*3/uL Abs Immat Gran (auto) (0.00-0.03) X10*3/uL Absolute Neuts (auto) (2.0-8.3) X10*3/uL PT (10.8-13.0) SEC INR (0.9-1.1) BUN (9-16) mg/dL Creatinine (0.5-1.4) mg/dL POC Glucose 192 H (60-115) mg/dL Random Glucose (60-115) mg/dL Lactic Acid (0.5-2.0) mmol/L Lactic Acid Fup @ 2Hr (0.5-2.0) mmol/L Total Bilirubin (0.0-1.0) mg/dL Direct Bilirubin (0.0-0.5) mg/dL Total Creatine Kinase (38-174) U/L B-Natriuretic Peptide (<100) pg/mL Albumin (3.5-5.0) g/dL Urine Blood (NEG) Short CBC 11/18/20 Range/Units 14:24 WBC 20.3 H (4.8-10.8) X10*3/uL Hgb 10.6 L (14.0-18.0) g/dl Hct 33.5 L (42-52) % Plt Count 272 (160-400) X10*3/uL BMP 11/18/20 14:24 Sodium 139 Potassium 4.1 Chloride 100 Carbon Dioxide 26 BUN 55 H Creatinine 2.41 H Calcium 8.6 Cardiac Enzymes 11/18/20 Range/Units 14:24 Total Creatine Kinase 500 H (38-174) U/L Liver Function 11/18/20 Range/Units 14:24 Total Bilirubin 1.7 H (0.0-1.0) mg/dL Direct Bilirubin 0.7 H (0.0-0.5) mg/dL AST 36 (5-37) U/L ALT 22 (0-40) U/L Alkaline Phosphatase 110 (39-117) U/L Albumin 3.2 L (3.5-5.0) g/dL Urine 11/18/20 Range/Units 18:58 Urine Color YELLOW Urine Appearance HAZY Urine pH 5.5 (5.0-8.0) Ur Specific [place] 1.025 (1.005-1.025) Urine Protein TRACE (NEG-TRACE) MG/DL Urine Glucose (UA) NEG (NEG) MG/DL All other labs normal. Assessment and Plan (1) Eschar of wound bed: Status: Acute He has a large open wound 12 x 9 cm as described above with an eschar. 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 He was given morphine 2 mg for pain. I proceeded to do sharp excisional debridement to remove as much of the eschar wth full thickness of skin down to viable looking tissue. This was done using fine scissors. I then applied wet to dry dressings on the wound bed and wrapped thhe leg with Kerlix roll. Both extremities should be elevated and this was relayed to the nursing staff. He is already on empiric abx. He appears to have had poor care at home with significant self-neglect and may need assistance with planning for care on eventual discharge. He says he has no family in the area.
[2020-11-18 23:42] VITALS: BP 141/51; PULSE 88; RESP 20; TEMP 37; O2SAT 92
[2020-11-19] MEDS: Piperacillin Sodium/Tazobactam 3.375 GM in 0.9 % Sodium Chloride 50 ML IV ×4 (00:44→18:00)
[2020-11-19 03:28] VITALS: BP 131/53; PULSE 78; RESP 20; TEMP 37; O2SAT 96
[2020-11-19] MEDS: Heparin Sodium,Porcine 5,000 UNIT/ML VIAL 5000 UNIT SUBCUT ×2 (06:07→18:04)
[2020-11-19] MEDS: Omeprazole 20 MG CAPSULE.DR PO (06:07)
[2020-11-19 06:47] LABS: Basophils Percent Auto 0.3 % (0-2); Hemoglobin 9.5 g/dl (14.0-18.0); MANUAL DIFF FLAG SCAN; PLT CLUMP 1; SCAN SMEAR FLAG 1
[2020-11-19 06:49] LABS: Eosinophils Absolute Auto 0.5 X10*3/uL (0.0-0.4); Eosinophils Percent Auto 3.1 % (0-4); Hematocrit 30.6 % (42-52); Imm Gran Abs Auto 0.08 X10*3/uL (0.00-0.03); Imm Gran Pct Auto 0.5 % (0.0-0.4); Lymphocytes Absolute Auto 0.5 X10*3/uL (1.2-4.9); Lymphocytes Percent Auto 3.3 % (20-40); Mean Corpuscular Hemoglobin 28.1 pg (27.0-33.0); Mean Corpuscular Volume 90.5 fL (80-98); Mean Platelet Volume 11.4 fL (9.4-12.4); Monocytes Absolute Auto 0.8 X10*3/uL (0.1-1.2); Monocytes Percent Auto 5.5 % (2-11); Neutrophils Absolute Auto 12.8 X10*3/uL (2.0-8.3); Neutrophils Percent Auto 87.3 % (45-73); Red Blood Count 3.38 X10*6/uL (4.60-5.80); Red Cell Distribution Width 15.1 % (11.0-16.0); White Blood Count 14.6 X10*3/uL (4.8-10.8)
[2020-11-19 07:30] VITALS: BP 137/63; PULSE 76; RESP 19; TEMP 36.8; O2SAT 94
[2020-11-19 07:31] LABS: Anion Gap 18 (12-20); Blood Urea Nitrogen 52 mg/dL (9-16); Carbon Dioxide 22 mmol/L (22-29); Chloride 105 mmol/L (96-108); Estimated Glomerular Filt Rate 32; Glucose Random 144 mg/dL (60-115); Potassium 3.8 mmol/L (3.3-5.1); Sodium 141 mmol/L (135-145)
[2020-11-19 07:52] LABS: SLIDE REVIEW VERIFIED
[2020-11-19 08:00] LABS: Glucose, Whole Blood 138 mg/dL (60-115)
[2020-11-19] MEDS: Insulin Glargine,Hum.rec.anlog 100 UNIT/ML 10 ML VIAL 12 UNIT SUBCUT (08:32)
[2020-11-19] MEDS: Clopidogrel Bisulfate 75 MG TABLET PO (08:32)
[2020-11-19] MEDS: predniSONE 5 MG TABLET PO (08:32)
[2020-11-19] MEDS: Atorvastatin Calcium 80 MG TABLET PO (08:32)
[2020-11-19] MEDS: SITagliptin Phosphate 25 MG TABLET PO (08:32)
[2020-11-19] MEDS: 0.9 % Sodium Chloride 1,000 ML 75 ML IVCONT (09:02)
--- NOTE | 2020-11-19 11:06 | P.PNIM_ITS ---
Subjective Subjective Date of Service: 11/19/20 Interval History: Follow up cellulitis No pain feels tired Physical Exam Vital Signs: Vital Signs: Last Vital Signs Temp 98.2 F 11/19/20 07:30 Pulse 76 11/19/20 07:30 Resp 19 11/19/20 07:30 BP 137/63 11/19/20 07:30 Pulse Ox 94 11/19/20 07:30 Body Mass Index 41.5 Appearing in no acute distress lung sounds are clear to auscultation heart regular rate rhythm, clear S1, S2 positive bowel sounds, abdomen is soft, nontender neuro patient is alert x3, no focal deficits Objective Data Current Medications Generic Name Dose Route Start Last Admin Trade Name Freq PRN Reason Stop Dose Admin Acetaminophen 650 mg 11/18/20 17:42 Acetaminophen 325 Mg Tablet PO Q6H PRN Pain, Mild (Pain Scale 1-3) Albuterol Sulfate 2 puff 11/18/20 17:42 Albuterol Sulfate 90 Mcg 8 Gm Inhaler INHALE Q4H PRN Shortness Of Breath Or Wheezing Atorvastatin Calcium 80 mg 11/19/20 09:00 11/19/20 08:32 Atorvastatin Calcium 80 Mg Tablet PO 80 mg DAILY [facility] Administration Budesonide 2 puff 11/18/20 20:00 11/19/20 00:46 Budesonide 180 Mcg Aer.Pow.Ba INHALE Not Given RBID [facility] Clopidogrel Bisulfate 75 mg 11/19/20 09:00 11/19/20 08:32 Clopidogrel Bisulfate 75 Mg Tablet PO 75 mg DAILY [facility] Administration Fluticasone Propionate 2 spray 11/18/20 17:42 Fluticasone Propionate Nasal 16 Gm [place] NOSTRIL-B DAILY PRN congestion Heparin Sodium (Porcine) 5,000 unit 11/18/20 18:00 11/19/20 06:07 Heparin Sodium,Porcine 5,000 Unit/Ml Vial SUBCUT 5,000 unit Q12H [facility] Administration Piperacillin Sod/Tazobactam 50 mls @ 100 mls/hr 11/18/20 19:00 11/19/20 06:38 Sod 3.375 gm/ Sodium Chloride IV Infused Q6H [facility] Infusion Sodium Chloride 1,000 mls @ 75 mls/hr 11/18/20 18:30 11/19/20 09:02 Ns IVCONT 75 mls/hr .[id number] [facility] Administration Vancomycin HCl 1,000 mg/ 270 mls @ 270 mls/hr 11/18/20 16:00 11/18/20 19:34 Sodium Chloride IV Not Given Q24H [facility] Insulin Glargine 12 unit 11/19/20 09:00 11/19/20 08:32 Insulin Glargine,Hum.Rec.Anlog 100 Unit/Ml 10 Ml Vial SUBCUT 12 unit DAILY [facility] Administration Insulin Glargine 33 unit 11/18/20 21:00 11/18/20 20:28 Insulin Glargine,Hum.Rec.Anlog 100 Unit/Ml 10 Ml Vial SUBCUT 33 unit BEDTIME [facility] Administration Omeprazole 20 mg 11/19/20 06:30 11/19/20 06:07 Omeprazole 20 Mg Capsule.Dr PO 20 mg DAILY@0630 [facility] Administration Ondansetron HCl 4 mg 11/18/20 17:42 11/18/20 21:32 Ondansetron Hcl 4 Mg/2 Ml Vial IVPUSH 4 mg Q8H PRN Administration Nausea and Vomiting Oxycodone HCl 5 mg 11/18/20 21:30 Oxycodone Hcl Immed Release 5 Mg Tablet PO Q4H PRN Pain, Moderate (Pain Scale 4-6 Pharmacy Consult 1 each 11/18/20 13:56 Consult Rx Perform Med Rec MISCELLANE ONCE PRN Consult order Pharmacy Consult 1 each 11/18/20 17:42 Consult Rx Vancomycin Dosing MISCELLANE DAILY PRN Consult order Prednisone 5 mg 11/19/20 09:00 11/19/20 08:32 Prednisone 5 Mg Tablet PO 5 mg DAILY [facility] Administration Sitagliptin Phosphate 25 mg 11/19/20 09:00 11/19/20 08:32 Sitagliptin Phosphate 25 Mg Tablet PO 25 mg DAILY [facility] Administration Sodium Chloride 3 ml 11/19/20 00:00 11/19/20 07:33 0.9 % Sodium Chloride Flush 3 Ml Syringe IVFLUSH Not Given QSHIFT [facility] Labs CBC & Chem 7: 11/19/20 06:02 11/19/20 06:02 Microbiology Microbiology Results: Microbiology 11/18/20 14:23 Blood - Venous Blood Culture - Preliminary Assessment and Plan (1) Eschar of wound bed: Status: Acute Assessment and Plan: 80-year-old man admitted with severe sepsis secondary to cellulitis. He has had lower extremity wounds for some time and has been having visiting nurse changing his dressings. He has noticed some increased odor to the right liriano wound and streaking of redness of both of his legs. He has also noticed some increased weakness and difficulty with ambulation. Severe sepsis. Resolved -Leukocytosis trending down -Lactic acid resolved -Follow blood cultures. Cellulitis. Ongoing, appears to be infected, poor wound care at home -infectious disease consultation -Wound debrided by gen surg -vancomycin, Zosyn -good wound care and cleaning, wet to dry twice daily Fungal rash. Groin and breast area. -Nystatin powder ELSA on CKD. Likely related to dehydration in light of nausea -Creat trending down -gentle IV fluids -follow BMP -if no improvement noted consider consulting Nephrology Normocytic anemia. No signs of bleeding. -trend CBC History of diastolic heart failure. No overt failure at this time -hold lasix due to elsa Diabetes mellitus -sliding scale, ADA diet -hold metformin due to ELSA Hypertension. Stable blood pressure -hold losartan due to ELSA Obesity. BMI 41.6 -Discussed the importance of weight loss as this may contribute to worsening of other comorbidities. DVT prophylaxis with heparin Discussed with Dr. Garcia Full code
--- NOTE | 2020-11-19 11:10 | P.CDIC_ITS ---
CDI Concurrent Query Service Date: 11/19/20 Documentation Clarification: Please clarify if you are treating a proba ble/suspected/likely or confirmed: Cellulitis bilateral lower extremities due to Diabetes Cellulitis bilateral lower extremities due to other cause, please specify Bilateral lower extremity cellulitis due to diabetes as well as chronic lymphedema Provider Response: Other Other Diagnosis: Bilateral or lower extremity cellulitis due to diabetes as well as chronic lymphedema PLEASE DO NOT DELETE/MODIFY EXISTING CONTENT Additional information is needed in order to code to the highest accuracy and appropriate Severity of Illness (SOI). Please clarify the information noted below in your progress notes and discharge summary. Risk Factors/Clinical Indicators/Treatments 80 year old male admitted with Severe Sepsis secondary to Acute Cellulitis, ELSA on CKD, Dehydration, Normocytic Anemia. Right lower extremity lateral lower leg with uribe eschar full thickness skin. Sharp excisional debridement done by surgery. PMH: Morbid Obese, COPD, Diastolic CHF, [place], DM CDS: Chapis Hamm RN Contact Number: [phone] Please Review the information above and exercise your independent professional judgment in responding to the query. If you concur, pleas document in the PROGRESS NOTES and DISCHARGE SUMMARY. If you do not agree with the query, please document in the query above. THIS QUERY IS PART OF THE PERMANENT MEDICAL RECORD
[2020-11-19 12:00] VITALS: BP 136/65; PULSE 77; RESP 20; TEMP 36.8; O2SAT 95
[2020-11-19 12:14] LABS: Glucose, Whole Blood 176 mg/dL (60-115)
--- NOTE | 2020-11-19 12:21 | MHC.CM.PN ---
NURSE DEGREASER NOTE ELECTRONIC MEDICAL RECORD REVIEWED ALONG WITH CASE DISCUSSED WITH STAFF NURSE AND HOSPITALIST MET WITH PATIENT . EXPLAINED THE ROLE OF THE NURSE DEGREASER ,IN THE TRANSITION FROM THE HOSPITAL TO HOME OR REHAB. EDUCATED ABOUT THE IMPORTANCE OF HAVING A HEALTH CARE PROXY. PATIENT IS A [place] [employer]. HE GOES TO [facility] FOR HIS PCP. HE LIVES ALONE , HE IS ACTIVE WITH [facility] FOR NURSING 3X WEEKLY, HE HAS NO PLATER HELPER SERVICES OR [facility]. HE REPORTED THAT HE HAS A CANE AND WALKER AT HOME WHICH HE USES FOR MOBILITY , BUT SECONDARY TO DISCOMFORT IN HIS LOWER EXTREMITIES HE RECENLY HAS BEEN MORE BED BOUND. HE CHECKS HIS POC 3X DAILY AND SELF ADMINISTER HIS MEDICATIONS HE REPORTED THAT HE IS SCHEDULED TO SEE A SOFTWARE ASSET MANAGEMENT ANALYST AND PULMONOLIGST FOR HIS S/P OR , CHF AND COPD HE REPORTED HE HAS OXYGEN AT HOME FOR PRN USE. HIS PCP AT [facility] CURRENTLY FOLLOWS HIM FOR ALL HIS DIAGNOSIS AND HIS DIABETES. DISCHARGE PLAN - PATIENT INITIALLY WANTING TO GO HOME, WITH THE RESUMPTION OF [facility] vna for nrusing and home physical theaprist director of casework to continue to follow for any changes in d/c needs
[2020-11-19] MEDS: Nystatin Powder 15 GM BOTTLE 1 APPL TOPICAL ×2 (14:05→21:58)
[2020-11-19] MEDS: Morphine Sulfate 4 MG/ML CARTRIDGE 3 MG IVPUSH (14:15)
[2020-11-19 14:50] VITALS: BMI 41.5
--- NOTE | 2020-11-19 14:54 | MHC.CLN ---
RE: CONSULT: PT WITH INCREASED NUTRITION RISK R/T PRESSURE INJURIES RECOMMEND INCREASING DIET RX TO 2200DM TO MEET INCREASED NEEDS WILL START GLUCERNA TID AND CARRIE TO PROMOTE WOUND HEALING SUPPLEMENT TO PROVIDE 871KCALS, 35G PROTEIN MONITOR PO INTAKE AND ACCEPTANCE OF SUPPLEMENTS SEE ALSO CLINICAL NUTRITION ASSESSMENT
[2020-11-19] MEDS: vancomycin HCL 1,000 MG in 0.9 % Sodium Chloride 250 ML 270 MG IV (15:16)
[2020-11-19 15:43] VITALS: BP 127/60; PULSE 68; RESP 16; TEMP 36.3; O2SAT 96
--- NOTE | 2020-11-19 16:05 | W.PM.IDCN ---
History of Present Illness Data of Consult Service Date: 11/19/20 Requesting physician: Sierra Menchaca Primary Care Provider: Unknown Physician HPI Reason for consult: bacteremia,cellulitis He presents to hospital with weakness and fatigue. He has had symptoms worse over last couple days and then had worsening right leg erythema,purulence and swelling. He has blood culture 1/2 positive gram positive cocci. Review of Systems Review of Systems: Yes all other systems are reviewed and are negative FOR[facility]LY [facility] Past Medical History Medical History CHF (congestive heart failure) COPD (chronic obstructive pulmonary disease) Diabetes Eschar of wound bed High cholesterol HTN (hypertension) Myocardial infarct Family History Family history: reviewed and not pertinent Social History Social History Household Members: None Housing: House Do you presently have visiting nurse or other home services: Yes Alcohol intake: never Years Smoked: 5-6 Second Hand Smoke Exposure: No service: Yes Current occupational status: unemployed Meds Allergies Allergy/AdvReac Type Severity Reaction Status Date / Time No Known Allergies Allergy Verified 11/18/20 14:00 [No Known Allergies*] Active Medications: Current Medications Generic Name Dose Route Start Last Admin Trade Name Freq PRN Reason Stop Dose Admin Acetaminophen 650 mg 11/18/20 17:42 Acetaminophen 325 Mg Tablet PO Q6H PRN Pain, Mild (Pain Scale 1-3) Albuterol Sulfate 2 puff 11/18/20 17:42 Albuterol Sulfate 90 Mcg 8 Gm Inhaler INHALE Q4H PRN Shortness Of Breath Or Wheezing Atorvastatin Calcium 80 mg 11/19/20 09:00 11/19/20 08:32 Atorvastatin Calcium 80 Mg Tablet PO 80 mg DAILY DERRELL Administration Budesonide 2 puff 11/18/20 20:00 11/19/20 13:19 Budesonide 180 Mcg Aer.Pow.Ba INHALE Not Given RBID DERRELL Clopidogrel Bisulfate 75 mg 11/19/20 09:00 11/19/20 08:32 Clopidogrel Bisulfate 75 Mg Tablet PO 75 mg DAILY DERRELL Administration Fluticasone Propionate 2 spray 11/18/20 17:42 Fluticasone Propionate Nasal 16 Gm [place] NOSTRIL-B DAILY PRN congestion Heparin Sodium (Porcine) 5,000 unit 11/18/20 18:00 11/19/20 06:07 Heparin Sodium,Porcine 5,000 Unit/Ml Vial SUBCUT 5,000 unit Q12H DERRELL Administration Piperacillin Sod/Tazobactam 50 mls @ 100 mls/hr 11/18/20 19:00 11/19/20 14:05 Sod 3.375 gm/ Sodium Chloride IV Infused Q6H DERRELL Infusion Sodium Chloride 1,000 mls @ 75 mls/hr 11/18/20 18:30 11/19/20 09:02 Ns IVCONT 75 mls/hr .[id number] DERRELL Administration Vancomycin HCl 1,000 mg/ 270 mls @ 270 mls/hr 11/18/20 16:00 11/19/20 15:16 Sodium Chloride IV 270 mls/hr Q24H DERRELL Administration Insulin Glargine 12 unit 11/19/20 09:00 11/19/20 08:32 Insulin Glargine,Hum.Rec.Anlog 100 Unit/Ml 10 Ml Vial SUBCUT 12 unit DAILY DERRELL Administration Insulin Glargine 33 unit 11/18/20 21:00 11/18/20 20:28 Insulin Glargine,Hum.Rec.Anlog 100 Unit/Ml 10 Ml Vial SUBCUT 33 unit BEDTIME DERRELL Administration Nystatin 1 appl 11/19/20 15:00 11/19/20 14:05 Nystatin Powder 15 Gm Bottle TOPICAL 1 appl TID DERRELL Administration Protocol Omeprazole 20 mg 11/19/20 06:30 11/19/20 06:07 Omeprazole 20 Mg Capsule.Dr PO 20 mg DAILY@0630 DERRELL Administration Ondansetron HCl 4 mg 11/18/20 17:42 11/18/20 21:32 Ondansetron Hcl 4 Mg/2 Ml Vial IVPUSH 4 mg Q8H PRN Administration Nausea and Vomiting Oxycodone HCl 5 mg 11/18/20 21:30 Oxycodone Hcl Immed Release 5 Mg Tablet PO Q4H PRN Pain, Moderate (Pain Scale 4-6 Pharmacy Consult 1 each 11/18/20 13:56 Consult Rx Perform Med Rec MISCELLANE ONCE PRN Consult order Pharmacy Consult 1 each 11/18/20 17:42 Consult Rx Vancomycin Dosing MISCELLANE DAILY PRN Consult order Prednisone 5 mg 11/19/20 09:00 11/19/20 08:32 Prednisone 5 Mg Tablet PO 5 mg DAILY DERRELL Administration Sitagliptin Phosphate 25 mg 11/19/20 09:00 11/19/20 08:32 Sitagliptin Phosphate 25 Mg Tablet PO 25 mg DAILY DERRELL Administration Sodium Chloride 3 ml 11/19/20 00:00 11/19/20 14:05 0.9 % Sodium Chloride Flush 3 Ml Syringe IVFLUSH Not Given QSHIFT FOR[facility] Home Medications Medication Instructions Recorded Confirmed Last Taken Type Januvia 25 mg PO DAILY 11/18/20 11/18/20 11/17/20 History Levemir FlexTouch U-100 Insuln 18 unit SUBCUT QAM 11/18/20 11/18/20 11/17/20 History Levemir FlexTouch U-100 Insuln 48 unit SUBCUT QPM 11/18/20 11/18/20 11/17/20 16:00 History Pulmicort Flexhaler 2 puff PO BID 11/18/20 11/18/20 11/17/20 16:00 History albuterol sulfate 2 inh INHALATION Q4H PRN 11/18/20 11/18/20 Unknown History atorvastatin 80 mg PO DAILY 11/18/20 11/18/20 11/17/20 17:00 History clopidogrel 75 mg PO DAILY 11/18/20 11/18/20 11/17/20 16:00 History fluticasone propionate 2 spray INTRANASAL DAILY PRN 11/18/20 11/18/20 Unknown History furosemide 120 mg PO DAILY 11/18/20 11/18/20 11/17/20 16:00 History insulin aspart U-100 [Novolog 4 - 8 unit SUBCUT DIRECTED 11/18/20 11/18/20 11/17/20 History Flexpen U-100 Insulin] losartan 50 mg PO DAILY 11/18/20 11/18/20 11/17/20 History metformin 1,000 mg PO DAILY 11/18/20 11/18/20 11/17/20 History pantoprazole 40 mg PO DAILY 11/18/20 11/18/20 11/17/20 History prednisone 5 mg PO DAILY 11/18/20 11/18/20 11/17/20 History Physical Exam Vital Signs: Vital Signs: Last Vital Signs Temp 97.3 F 11/19/20 15:43 Pulse 68 11/19/20 15:43 Resp 16 11/19/20 15:43 BP 127/60 11/19/20 15:43 Pulse Ox 96 11/19/20 15:43 Body Mass Index 41.5 Const: General: cooperative Orientation/consciousness: patient oriented x3 HENMT: Head: Yes normal to inspection Mouth: Normal oral and palatal mucosa present Eyes: General: appearance normal, both eyes and all related structures Resp: Effort & Inspection: normal respiratory effort Cardio: Rate: regular rate Rhythm: regular rhythm GI: Palpation (GI): Soft to palpation and nontender : General: Yes no CVA tenderness Back/Spine/Pelvis: Back: no CVA tenderness Skin: General skin exam: no rashes or lesions noted Neuro: General: patient oriented x3 Extrem: Other: right leg cellulitis with ulcer leg 6 x 8 cm Results Labs CBC & Chem 7: 11/21/20 05:59 11/21/20 05:59 Labs: Short CBC 11/18/20 11/19/20 11/19/20 Range/Units 14:24 06:02 06:02 WBC 14.6 H (4.8-10.8) X10*3/uL Hgb 9.5 L (14.0-18.0) g/dl Hct 30.6 L (42-52) % Plt Count TNP Creatinine 2.41 H 2.02 H (0.5-1.4) mg/dL BMP 11/19/20 06:02 Sodium 141 Potassium 3.8 Chloride 105 Carbon Dioxide 22 BUN 52 H Creatinine 2.02 H Calcium 8.0 L D Urine 11/18/20 Range/Units 18:58 Urine Color YELLOW Urine Appearance HAZY Urine pH 5.5 (5.0-8.0) Ur Specific Williams 1.025 (1.005-1.025) Urine Protein TRACE (NEG-TRACE) MG/DL Urine Glucose (UA) NEG (NEG) MG/DL Microbiology Microbiology Results: Microbiology 11/18/20 14:23 Blood - Venous Blood Culture - Preliminary Assessment and Plan (1) Eschar of wound bed: (2) Severe sepsis: Status: Resolved Despite renal insufficiency,continue Vancomycin and Zosyn for now Will adjust based on sensitivities Local Wound care Check echo evaluate endocarditis (3) Cellulitis:
[2020-11-19 16:22] LABS: Glucose, Whole Blood 166 mg/dL (60-115)
--- NOTE | 2020-11-19 17:13 | P.PNGS_ITS ---
Subjective Subjective Date of Service: 11/19/20 Interval history: Patient seen and examined Says he is comfortable Admits to pain on the right lateral lower leg Physical Exam Vital Signs: Vital Signs: Last Vital Signs Temp 97.3 F 11/19/20 15:43 Pulse 68 11/19/20 15:43 Resp 16 11/19/20 15:43 BP 127/60 11/19/20 15:43 Pulse Ox 96 11/19/20 15:43 Body Mass Index 41.5 Const: Other: Appears very frail and a little short of breath Resp: Other: A little shortness of breath Cardio: Rate: regular rate GI: Palpation (GI): Soft to palpation Extrem: Other: Right lower leg - large open wound with thin fibrinous coating, less compared to yesterday, some surrounding cellulitis, no pus Progress Note: A&P Assessment and plan (1) Eschar of wound bed: Status: Acute Assessment and Plan: I had debrided this wound yesterday Has significant edema both lower extremities I changes dressings today, wrapped the leg with Kerlix Will recheck tomorrow Continue antibiotics Leg elevation Will follow Fall Risk Details Current Medications: Current Medications Generic Name Dose Route Start Last Admin Trade Name Freq PRN Reason Stop Dose Admin Acetaminophen 650 mg 11/18/20 17:42 Acetaminophen 325 Mg Tablet PO Q6H PRN Pain, Mild (Pain Scale 1-3) Albuterol Sulfate 2 puff 11/18/20 17:42 Albuterol Sulfate 90 Mcg 8 Gm Inhaler INHALE Q4H PRN Shortness Of Breath Or Wheezing Atorvastatin Calcium 80 mg 11/19/20 09:00 11/19/20 08:32 Atorvastatin Calcium 80 Mg Tablet PO 80 mg DAILY DERRELL Administration Budesonide 2 puff 11/18/20 20:00 11/19/20 13:19 Budesonide 180 Mcg Aer.Pow.Ba INHALE Not Given RBID DERRELL Clopidogrel Bisulfate 75 mg 11/19/20 09:00 11/19/20 08:32 Clopidogrel Bisulfate 75 Mg Tablet PO 75 mg DAILY DERRELL Administration Fluticasone Propionate 2 spray 11/18/20 17:42 Fluticasone Propionate Nasal 16 Gm [place] NOSTRIL-B DAILY PRN congestion Heparin Sodium (Porcine) 5,000 unit 11/18/20 18:00 11/19/20 06:07 Heparin Sodium,Porcine 5,000 Unit/Ml Vial SUBCUT 5,000 unit Q12H DERRELL Administration Piperacillin Sod/Tazobactam 50 mls @ 100 mls/hr 11/18/20 19:00 11/19/20 14:05 Sod 3.375 gm/ Sodium Chloride IV Infused Q6H DERRELL Infusion Sodium Chloride 1,000 mls @ 75 mls/hr 11/18/20 18:30 11/19/20 09:02 Ns IVCONT 75 mls/hr .[id number] DERRELL Administration Vancomycin HCl 1,000 mg/ 270 mls @ 270 mls/hr 11/18/20 16:00 11/19/20 16:18 Sodium Chloride IV Infused Q24H DERRELL Infusion Insulin Glargine 12 unit 11/19/20 09:00 11/19/20 08:32 Insulin Glargine,Hum.Rec.Anlog 100 Unit/Ml 10 Ml Vial SUBCUT 12 unit DAILY DERRELL Administration Insulin Glargine 33 unit 11/18/20 21:00 11/18/20 20:28 Insulin Glargine,Hum.Rec.Anlog 100 Unit/Ml 10 Ml Vial SUBCUT 33 unit BEDTIME DERRELL Administration Nystatin 1 appl 11/19/20 15:00 11/19/20 14:05 Nystatin Powder 15 Gm Bottle TOPICAL 1 appl TID DERRELL Administration Protocol Omeprazole 20 mg 11/19/20 06:30 11/19/20 06:07 Omeprazole 20 Mg Capsule.Dr PO 20 mg DAILY@0630 DERRELL Administration Ondansetron HCl 4 mg 11/18/20 17:42 11/18/20 21:32 Ondansetron Hcl 4 Mg/2 Ml Vial IVPUSH 4 mg Q8H PRN Administration Nausea and Vomiting Oxycodone HCl 5 mg 11/18/20 21:30 Oxycodone Hcl Immed Release 5 Mg Tablet PO Q4H PRN Pain, Moderate (Pain Scale 4-6 Pharmacy Consult 1 each 11/18/20 13:56 Consult Rx Perform Med Rec MISCELLANE ONCE PRN Consult order Pharmacy Consult 1 each 11/18/20 17:42 Consult Rx Vancomycin Dosing MISCELLANE DAILY PRN Consult order Prednisone 5 mg 11/19/20 09:00 11/19/20 08:32 Prednisone 5 Mg Tablet PO 5 mg DAILY DERRELL Administration Sitagliptin Phosphate 25 mg 11/19/20 09:00 11/19/20 08:32 Sitagliptin Phosphate 25 Mg Tablet PO 25 mg DAILY DERRELL Administration Sodium Chloride 3 ml 11/19/20 00:00 11/19/20 14:05 0.9 % Sodium Chloride Flush 3 Ml Syringe IVFLUSH Not Given QSHIFT DERRELL Time Spent With Patient Time: Total time spent is greater than 50% in coordination of care (as document ed) at patient's floor/unit and/or counseling patient: Time with patient: 15 - 24 minutes
[2020-11-19 19:37] VITALS: BP 130/60; PULSE 71; RESP 18; TEMP 36.2; O2SAT 96
[2020-11-19 20:19] LABS: Glucose, Whole Blood 191 mg/dL (60-115)
[2020-11-19] MEDS: Insulin Glargine,Hum.rec.anlog 100 UNIT/ML 10 ML VIAL 33 UNIT SUBCUT (21:58)
[2020-11-19 23:48] VITALS: BP 140/60; PULSE 80; RESP 20; TEMP 36.7; O2SAT 97
[2020-11-20] VITALS (7 sets, daily range): BP systolic 121–150; BP diastolic 53–70; PULSE 69–78; RESP 16–20; TEMP 36–37.1; O2SAT 93–97
[2020-11-20] MEDS: Piperacillin Sodium/Tazobactam 3.375 GM in 0.9 % Sodium Chloride 50 ML IV ×4 (00:39→18:01)
[2020-11-20] MEDS: 0.9 % Sodium Chloride 1,000 ML 75 ML IVCONT (04:20)
[2020-11-20] MEDS: Heparin Sodium,Porcine 5,000 UNIT/ML VIAL 5000 UNIT SUBCUT ×2 (06:03→18:01)
[2020-11-20] MEDS: Omeprazole 20 MG CAPSULE.DR PO (06:03)
[2020-11-20 06:50] LABS: Hemoglobin 9.4 g/dl (14.0-18.0); Mean Corpuscular HGB Conc 30.3 g/dl (31.0-36.0); Mean Corpuscular Hemoglobin 27.9 pg (27.0-33.0); Mean Platelet Volume 10.4 fL (9.4-12.4); Platelet Count 236 X10*3/uL (160-400); Red Blood Count 3.37 X10*6/uL (4.60-5.80); Red Cell Distribution Width 15.1 % (11.0-16.0); White Blood Count 12.7 X10*3/uL (4.8-10.8)
[2020-11-20 07:16] LABS: Anion Gap 13 (12-20); Blood Urea Nitrogen 51 mg/dL (9-16); Calcium 7.8 mg/dL (8.4-10.2); Carbon Dioxide 25 mmol/L (22-29); Chloride 106 mmol/L (96-108); Creatinine Clr Calc Pharmacy 47.7; Estimated Glomerular Filt Rate 38; Glucose Random 116 mg/dL (60-115); Potassium 3.6 mmol/L (3.3-5.1); Sodium 140 mmol/L (135-145)
[2020-11-20 07:46] LABS: Glucose, Whole Blood 109 mg/dL (60-115)
[2020-11-20] MEDS: Insulin Glargine,Hum.rec.anlog 100 UNIT/ML 10 ML VIAL 12 UNIT SUBCUT (08:07)
[2020-11-20] MEDS: predniSONE 5 MG TABLET PO (08:07)
[2020-11-20] MEDS: SITagliptin Phosphate 25 MG TABLET PO (08:07)
[2020-11-20] MEDS: Atorvastatin Calcium 80 MG TABLET PO (08:07)
[2020-11-20] MEDS: Clopidogrel Bisulfate 75 MG TABLET PO (08:07)
[2020-11-20] MEDS: Nystatin Powder 15 GM BOTTLE 1 APPL TOPICAL ×3 (10:42→20:38)
[2020-11-20 11:46] LABS: Glucose, Whole Blood 173 mg/dL (60-115)
--- NOTE | 2020-11-20 12:49 | P.PNGS_ITS ---
Subjective Subjective Date of Service: 11/20/20 Interval history: denies new complaints looks more comfortable and more alert Physical Exam Vital Signs: Vital Signs: Last Vital Signs Temp 98.0 F 11/20/20 11:46 Pulse 75 11/20/20 11:46 Resp 18 11/20/20 11:46 BP 121/53 L 11/20/20 11:46 Pulse Ox 95 11/20/20 11:46 Body Mass Index 41.5 Const: General: comfortable and no acute distress Resp: Effort & Inspection: normal respiratory effort GI: Palpation (GI): Soft to palpation Extrem: Other: right lower leg wound with fresh dressings, clean. less edema on both legs and feet, less cellulitic changes around wound Progress Note: A&P Assessment and plan (1) Eschar of wound bed: Status: Acute Assessment and Plan: debrided 2 days ago leg looks much better in terms of edema and cellulitis leg elevation woun care will follow Fall Risk Details Current Medications: Current Medications Generic Name Dose Route Start Last Admin Trade Name Freq PRN Reason Stop Dose Admin Acetaminophen 650 mg 11/18/20 17:42 Acetaminophen 325 Mg Tablet PO Q6H PRN Pain, Mild (Pain Scale 1-3) Albuterol Sulfate 2 puff 11/18/20 17:42 Albuterol Sulfate 90 Mcg 8 Gm Inhaler INHALE Q4H PRN Shortness Of Breath Or Wheezing Atorvastatin Calcium 80 mg 11/19/20 09:00 11/20/20 08:07 Atorvastatin Calcium 80 Mg Tablet PO 80 mg DAILY DERRELL Administration Budesonide 2 puff 11/18/20 20:00 11/20/20 10:41 Budesonide 180 Mcg Aer.Pow.Ba INHALE Not Given RBID DERRELL Clopidogrel Bisulfate 75 mg 11/19/20 09:00 11/20/20 08:07 Clopidogrel Bisulfate 75 Mg Tablet PO 75 mg DAILY DERRELL Administration Fluticasone Propionate 2 spray 11/18/20 17:42 Fluticasone Propionate Nasal [address] [place] NOSTRIL-B DAILY PRN congestion Heparin Sodium (Porcine) 5,000 unit 11/18/20 18:00 11/20/20 06:03 Heparin Sodium,Porcine 5,000 Unit/Ml Vial SUBCUT 5,000 unit Q12H DERRELL Administration Piperacillin Sod/Tazobactam 50 mls @ 100 mls/hr 11/18/20 19:00 11/20/20 06:36 Sod 3.375 gm/ Sodium Chloride IV Infused Q6H DERRELL Infusion Sodium Chloride 1,000 mls @ 75 mls/hr 11/18/20 18:30 11/20/20 11:36 Ns IVCONT Not Given .[id number] DERRELL Vancomycin HCl 1,000 mg/ 270 mls @ 270 mls/hr 11/18/20 16:00 11/19/20 16:18 Sodium Chloride IV Infused Q24H DERRELL Infusion Insulin Glargine 12 unit 11/19/20 09:00 11/20/20 08:07 Insulin Glargine,Hum.Rec.Anlog 100 Unit/Ml 10 Ml Vial SUBCUT 12 unit DAILY DERRELL Administration Insulin Glargine 33 unit 11/18/20 21:00 11/19/20 21:58 Insulin Glargine,Hum.Rec.Anlog 100 Unit/Ml 10 Ml Vial SUBCUT 33 unit BEDTIME DERRELL Administration Nystatin 1 appl 11/19/20 15:00 11/20/20 10:42 Nystatin Powder 15 Gm Bottle TOPICAL 1 appl TID DERRELL Administration Protocol Omeprazole 20 mg 11/19/20 06:30 11/20/20 06:03 Omeprazole 20 Mg Capsule.Dr PO 20 mg DAILY@0630 DERRELL Administration Ondansetron HCl 4 mg 11/18/20 17:42 11/18/20 21:32 Ondansetron Hcl 4 Mg/2 Ml Vial IVPUSH 4 mg Q8H PRN Administration Nausea and Vomiting Oxycodone HCl 5 mg 11/18/20 21:30 Oxycodone Hcl Immed Release 5 Mg Tablet PO Q4H PRN Pain, Moderate (Pain Scale 4-6 Pharmacy Consult 1 each 11/18/20 13:56 Consult Rx Perform Med Rec MISCELLANE ONCE PRN Consult order Pharmacy Consult 1 each 11/18/20 17:42 Consult Rx Vancomycin Dosing MISCELLANE DAILY PRN Consult order Prednisone 5 mg 11/19/20 09:00 11/20/20 08:07 Prednisone 5 Mg Tablet PO 5 mg DAILY DERRELL Administration Sitagliptin Phosphate 25 mg 11/19/20 09:00 11/20/20 08:07 Sitagliptin Phosphate 25 Mg Tablet PO 25 mg DAILY DERRELL Administration Sodium Chloride 3 ml 11/19/20 00:00 11/20/20 08:09 0.9 % Sodium Chloride Flush 3 Ml Syringe IVFLUSH Not Given QSHIFT DERRELL Time Spent With Patient Time: Total time spent is greater than 50% in coordination of care (as documented) at patient's floor/unit and/or counseling patient: Time with patient: less than 15 minutes
--- NOTE | 2020-11-20 13:27 | HO.PM.IMPN ---
Subjective Subjective Date of Service: 11/20/20 Interval History: seen in follow up for sepsis/cellulitis/JOSUE no overnight events no specific complaints, reports chronic edema ROS CV: No chest pain, palpitations Pulmonary: No shortness of breath, cough Constitutional: No fever, chills Gastrointestinal: No nausea, vomiting, abdominal pain Physical Exam Vital Signs: Vital Signs: Last Vital Signs Temp 98.0 F 11/20/20 11:46 Pulse 75 11/20/20 11:46 Resp 18 11/20/20 11:46 BP 121/53 L 11/20/20 11:46 Pulse Ox 95 11/20/20 11:46 Body Mass Index 41.5 Const: Nutritional Appearance: obese Orientation/consciousness: patient oriented x3 HENMT: Head: Yes normocephalic and Yes atraumatic Eyes: Sclerae: sclerae normal Chest: Chest palpation & inspection: normal inspection of the chest Resp: Effort & Inspection: normal respiratory effort and no respiratory distress Cardio: Rate: regular rate Rhythm: regular rhythm GI: Palpation (GI): Soft to palpation and nontender Neuro: General: patient oriented x3 Cranial nerves: Yes CN's II-XII intact bilaterally and Yes Bilaterally intact EOM present Extrem: Other: b/l leg edema; b/l legs dry scaly skin erythema; RLE wound dressed c/d/i dresing; erythema to dorsal surface of feet and toes, improving. skin breakdown on buttock similar to yesterday Objective Data Current Medications Generic Name Dose Route Start Last Admin Trade Name Freq PRN Reason Stop Dose Admin Acetaminophen 650 mg 11/18/20 17:42 Acetaminophen 325 Mg Tablet PO Q6H PRN Pain, Mild (Pain Scale 1-3) Albuterol Sulfate 2 puff 11/18/20 17:42 Albuterol Sulfate 90 Mcg 8 Gm Inhaler INHALE Q4H PRN Shortness Of Breath Or Wheezing Atorvastatin Calcium 80 mg 11/19/20 09:00 11/20/20 08:07 Atorvastatin Calcium 80 Mg Tablet PO 80 mg DAILY DERRELL Administration Budesonide 2 puff 11/18/20 20:00 11/20/20 10:41 Budesonide 180 Mcg Aer.Pow.Ba INHALE Not Given RBID DERRELL Clopidogrel Bisulfate 75 mg 11/19/20 09:00 11/20/20 08:07 Clopidogrel Bisulfate 75 Mg Tablet PO 75 mg DAILY DERRELL Administration Fluticasone Propionate 2 spray 11/18/20 17:42 Fluticasone Propionate Nasal 16 Gm [place] NOSTRIL-B DAILY PRN congestion Heparin Sodium (Porcine) 5,000 unit 11/18/20 18:00 11/20/20 06:03 Heparin Sodium,Porcine 5,000 Unit/Ml Vial SUBCUT 5,000 unit Q12H DERRELL Administration Piperacillin Sod/Tazobactam 50 mls @ 100 mls/hr 11/18/20 19:00 11/20/20 13:22 Sod 3.375 gm/ Sodium Chloride IV 100 mls/hr Q6H DERRELL Administration Sodium Chloride 1,000 mls @ 75 mls/hr 11/18/20 18:30 11/20/20 11:36 Ns IVCONT Not Given .[id number] DERRELL Vancomycin HCl 1,000 mg/ 270 mls @ 270 mls/hr 11/18/20 16:00 11/19/20 16:18 Sodium Chloride IV Infused Q24H DERRELL Infusion Insulin Glargine 12 unit 11/19/20 09:00 11/20/20 08:07 Insulin Glargine,Hum.Rec.Anlog 100 Unit/Ml 10 Ml Vial SUBCUT 12 unit DAILY DERRELL Administration Insulin Glargine 33 unit 11/18/20 21:00 11/19/20 21:58 Insulin Glargine,Hum.Rec.Anlog 100 Unit/Ml 10 Ml Vial SUBCUT 33 unit BEDTIME DERRELL Administration Nystatin 1 appl 11/19/20 15:00 11/20/20 10:42 Nystatin Powder 15 Gm Bottle TOPICAL 1 appl TID DERRELL Administration Protocol Omeprazole 20 mg 11/19/20 06:30 11/20/20 06:03 Omeprazole 20 Mg Capsule.Dr PO 20 mg DAILY@0630 DERRELL Administration Ondansetron HCl 4 mg 11/18/20 17:42 11/18/20 21:32 Ondansetron Hcl 4 Mg/2 Ml Vial IVPUSH 4 mg Q8H PRN Administration Nausea and Vomiting Oxycodone HCl 5 mg 11/18/20 21:30 Oxycodone Hcl Immed Release 5 Mg Tablet PO Q4H PRN Pain, Moderate (Pain Scale 4-6 Pharmacy Consult 1 each 11/18/20 13:56 Consult Rx Perform Med Rec MISCELLANE ONCE PRN Consult order Pharmacy Consult 1 each 11/18/20 17:42 Consult Rx Vancomycin Dosing MISCELLANE DAILY PRN Consult order Prednisone 5 mg 11/19/20 09:00 11/20/20 08:07 Prednisone 5 Mg Tablet PO 5 mg DAILY DERRELL Administration Sitagliptin Phosphate 25 mg 11/19/20 09:00 11/20/20 08:07 Sitagliptin Phosphate 25 Mg Tablet PO 25 mg DAILY DERRELL Administration Sodium Chloride 3 ml 11/19/20 00:00 11/20/20 08:09 0.9 % Sodium Chloride Flush 3 Ml Syringe IVFLUSH Not Given QSHIFT [facility] Labs CBC & Chem 7: 11/20/20 06:24 11/20/20 06:24 Microbiology Microbiology Results: Microbiology 11/18/20 14:23 Blood - Venous Blood Culture - Preliminary Streptococcus group c 11/18/20 15:08 Blood - Venous Blood Culture - Preliminary No growth after 24 hours. Assessment and Plan (1) Eschar of wound bed: Status: Acute Assessment and Plan: This is a 80-year-old male of CHF, diabetes, hypertension, dyslipidemia, COPD, CAD admitted with severe sepsis secondary to cellulitis. He has had lower extremity wounds for some time and has been having visiting nurse changing his dressings. He has noticed some increased odor to the right liriano wound and streaking of redness of both of his legs. Severe sepsis. Resolved -Leukocytosis trending down -Lactic acid resolved Cellulitis b/l lower extremities/chronic wounds Bacteremia, 1/2 BCx growing group C strep in the setting of diabetes, chronic edema -ID following -Wound debrided by gen surg -d/c kala, continue zosyn for now -follow final sensitivities for blood cultures -echo pending to r/o endocarditis -continue local wound care -elevate legs Fungal rash. Groin and breast area. -Nystatin powder JOSUE on CKD3. SCr trending down -gentle IV fluids -follow BMP -avoid nephrotoxins; losartan, Lasix on Normocytic anemia. No signs of bleeding. -trend CBC History of diastolic heart failure. No overt failure at this time -hold lasix due to josue -monitor fluid status closely Diabetes mellitus -sliding scale, ADA diet -continue Lantus -continue Januvia -hold metformin due to JOSUE Hypertension. Stable blood pressure -hold losartan due to JOSUE On chronic prednisone ?indication Morbid Obesity. BMI 41.6 -Discussed the importance of weight loss as this may contribute to worsening of other comorbidities. HLD -continue statin gerd -continue omeprazole Dispo: PT eval, will likely need short-term rehab versus long-term care DVT prophylaxis with heparin Full code Attending. Dr. Garcia
--- NOTE | 2020-11-20 15:45 | MHC.CM.PN ---
nurse manager respiratory care note electronic medical recoird reviewed along with case discussed with staff nurse and hospitalist , met with patient this morning hospitalist said patient would need to go to short term rehab and he was agreeable . i met with patient and he did not want to talk about short term rehab, i went back again in the afternoon and started out by reviewing the facilities near him home. he reported thast in the past he was at [facility] and would not want to go back there again , we discussed [facility] as he was [facility] with them, [facility], [facility] [address]/[facility], [facility] and [facility]. i explained that this would be a iniation of referrals , he would not be held to any one of these iui just wanted to have himkm have choices when he decides to go to rehab , i explained that he told me that he was mostly bed bound secondary to his lower legs and the physical theaprist evaluated him and recomended short term rehab until he can get a little stronger. he still did not want me to make any referrals at this time , he said he would discuss this further with his brother and make a decision about choices tomorrow, i informed the hospitalist =of this, discharge plan -str vs initial plan resumption of his bsvna for nursing and home physical therapy
[2020-11-20 16:32] LABS: Glucose, Whole Blood 213 mg/dL (60-115)
[2020-11-20 17:14] LABS: Vancomycin Trough 12.6 mcg/mL (10.0-20.0)
[2020-11-20 20:30] LABS: Glucose, Whole Blood 224 mg/dL (60-115)
[2020-11-20] MEDS: Insulin Glargine,Hum.rec.anlog 100 UNIT/ML 10 ML VIAL 33 UNIT SUBCUT (20:36)
[2020-11-21] MEDS: Piperacillin Sodium/Tazobactam 3.375 GM in 0.9 % Sodium Chloride 50 ML IV ×2 (00:31→06:00)
[2020-11-21 04:24] VITALS: BP 144/65; PULSE 88; RESP 22; TEMP 36.5; O2SAT 93
[2020-11-21] MEDS: 0.9 % Sodium Chloride 1,000 ML 75 ML IVCONT (05:57)
[2020-11-21] MEDS: Omeprazole 20 MG CAPSULE.DR PO (05:58)
[2020-11-21] MEDS: Heparin Sodium,Porcine 5,000 UNIT/ML VIAL 5000 UNIT SUBCUT (05:58)
[2020-11-21 06:41] LABS: Hematocrit 32.4 % (42-52); Hemoglobin 10.1 g/dl (14.0-18.0); Mean Corpuscular HGB Conc 31.2 g/dl (31.0-36.0); Mean Corpuscular Hemoglobin 28.3 pg (27.0-33.0); Mean Corpuscular Volume 90.8 fL (80-98); Mean Platelet Volume 11.2 fL (9.4-12.4); Platelet Count 234 X10*3/uL (160-400); Red Blood Count 3.57 X10*6/uL (4.60-5.80); Red Cell Distribution Width 14.7 % (11.0-16.0); White Blood Count 15.6 X10*3/uL (4.8-10.8)
--- NOTE | 2020-11-21 07:10 | CA_ITS ---
Transthoracic Echocardiogram Patient (Last, First, Middle): Janes Ramirez E Gender: Male Date of : 1940 Age: 80 Procedure Date: 11/21/2020 Procedure Type: Transthoracic Echocardiogram Location: S3E Height: 177.8 cm Weight: 133.81 kg BSA: 2.46 m2 Heart Rate: bpm BP: 136 / 63 mmHg Embedded Software Test Engineer: PATY Referring MD: Sierra Menchaca NP Rod Bending Machine Operator: Sacha Braun MD Symptoms: bacteremia, ? endocarditis Study Quality: Technically Difficult due to obesity ECG Rhythm: Sinus Conclusions: - 1. Technically very limited study in 2. Vegetations cannot be ruled out on this study 3. Normal LV systolic function with mild LVH with impaired relaxation filling pattern 4. Valves not well visualized but cardiac valvular Doppler within normal limits 5. Normal RV systolic pressure Findings Left Ventricle Normal left ventricular size and systolic function. There is mildly increased left ventricular wall thickness. The visually estimated ejection fraction is between 55-60%. Regional wall motion abnormalities can not be excluded due to suboptimal endocardial definition. Spectral Doppler is indicative of an impaired relaxation filling pattern. E/E prime ratio is between 8 and 15 consistent with indeterminate filling pressures. Right Ventricle The right ventricle was not well visualized. Atria The left atrium was not well visualized. There is lipomatous hypertrophy of the interatrial septum. There is no evidence of interatrial shunt. The right atrium was not well visualized. Aortic Valve There is mild calcification of the aortic valve. There is moderate thickening of the aortic valve. There is no aortic valve stenosis. There is no aortic valve regurgitation. Vegetation cannot be ruled out on this study Mitral Valve The mitral valve was not well visualized. There is trace mitral valve regurgitation. There is no mitral valve stenosis. Vegetation cannot be ruled out on this study Pulmonic Valve The pulmonic valve was not well visualized. Tricuspid Valve The tricuspid valve was not well visualized. The right ventricular systolic pressure is normal. There is no evidence of pulmonary hypertension. Great Vessels All visible segments of the aorta are normal in size. The pulmonary artery was not well visualized. Venous The inferior vena cava is normal in size and collapses greater than 50% with inspiration. Pericardium/Pleural The pericardium was not well visualized. Prior Study Comparison No significant change compared to prior study dated: 02/08/2018. Recommendations, Care & Conclusions Consider a BRIAN if clinically appropriate. Recommend contrast in the future to improve endocardial definition. Measurements 2D Linear Measurements IVSd: 1.43 0.6-0.9/0.6-1.0 cm LVIDd: 5.13 3.9-5.3/4.2-5.9 cm LVIDd Index: 2.09 2.4-3.2/2.2-3.1 cm/m2 LVIDs: 3.48 2.0-3.6 cm LVPWd: 1.26 0.7-1.1 cm Ao Root: 3.40 2.1-3.5 cm LA Diam: 4.60 2.7-3.8/3.0-4.0 cm LAIDs Index: 1.87 1.5-2.3 cm/m2 LV Mass: 356.93 67-162/88-224 g LV Mass Index: 145.10 43-95/49-115 g/m2 LVOT Diam: 2.50 3.0+(-)1.3 cm Mitral Valve MV Pk E: 0.64 MV PK A: 0.83 MV Decel Time: 173.00 E/A: 0.80 E'Lateral: 12.40 E'Medial: 6.96 E/E' Med: 9.20 E/E' Lat: 5.20 PHT: 51.00 MVA PHT: 4.31 Decel [place]: 3.71 Aortic Valve AoV Pk Balwinder: 1.47 AoV Mn Balwinder: 0.98 AoV VTI: 0.31 AoV Pk Grad: 9.00 Aov Mn Grad: 5.00 MIREYA Cont.VTI: 4.24 LVOT LVOT Pk Balwinder: 0.96 LVOT Mn Balwinder: 0.70 LVOT VTI: 0.27 LVOT Pk Grad: 4.00 LVOT Mn Grad: 2.00 LVOT Diam: 2.50 LVOT Area: 4.91 Diastolic Function MV Pk E: 0.64 MV Pk A: 0.83 E/A: 0.80 E'Medial: 6.96 E/E' Med: 9.20 E' Laterial: 12.40 E/E' Lat: 5.20 Tricuspid Valve TR Pk Balwinder: 2.52 TR Pk Grad: 25.00 RA Press: 3.00 RVSP: 28.00 Great Vessels Aorta Ao Root-2D: 3.40 2.0-3.7 cm Ao Asc: 3.60 2.1-3.4 cm Pulmonary Valve PV Pk Balwinder: 1.18 Peak PV Grad: 6.00 Updated in Other Vendor System with Status of Final Sacha Braun MD electronically signed on 11/21/2020 12:47:40 PM with status of Final
[2020-11-21] MEDS: oxyCODONE HCl Immed Release 5 MG TABLET PO ×2 (07:17→11:46)
[2020-11-21] MEDS: Acetaminophen 325 MG TABLET 650 MG PO (07:18)
[2020-11-21] MEDS: 0.9 % Sodium Chloride Flush 3 ML SYRINGE IVFLUSH ×2 (07:18→16:17)
[2020-11-21] MEDS: Atorvastatin Calcium 80 MG TABLET PO (07:19)
[2020-11-21] MEDS: Insulin Glargine,Hum.rec.anlog 100 UNIT/ML 10 ML VIAL 12 UNIT SUBCUT (07:19)
[2020-11-21] MEDS: predniSONE 5 MG TABLET PO (07:19)
[2020-11-21] MEDS: Clopidogrel Bisulfate 75 MG TABLET PO (07:19)
[2020-11-21] MEDS: SITagliptin Phosphate 25 MG TABLET PO (07:19)
[2020-11-21] MEDS: Nystatin Powder 15 GM BOTTLE 1 APPL TOPICAL ×2 (07:20→16:17)
[2020-11-21 07:23] VITALS: BP 146/63; PULSE 83; RESP 18; TEMP 36.8; O2SAT 93
[2020-11-21 07:36] LABS: Anion Gap 17 (12-20); Blood Urea Nitrogen 49 mg/dL (9-16); Calcium 7.8 mg/dL (8.4-10.2); Carbon Dioxide 18 mmol/L (22-29); Chloride 108 mmol/L (96-108); Creatinine Clr Calc Pharmacy 48.5; Estimated Glomerular Filt Rate 39; Glucose Random 167 mg/dL (60-115); Potassium 3.9 mmol/L (3.3-5.1); Sodium 139 mmol/L (135-145)
[2020-11-21 07:36] LABS: Glucose, Whole Blood 168 mg/dL (60-115)
[2020-11-21] MEDS: Budesonide 180 MCG AER.POW.BA 2 PUFF INHALE (08:43)
--- NOTE | 2020-11-21 09:37 | MHC.CM.PN ---
IMM 11/21/20, CM MET W/HOSPITALIST AND PT WHO REPORTS HE WOULD NOW LIKE STR PRIOR TO GOING HOME, REFERRALS MADE TO [facility] AND [facility] PER PT REQUEST. CM WILL CONT TO FOLLOW D/C NEEDS.
[2020-11-21] MEDS: cefTRIAXone sodium 2 GM in 0.9 % Sodium Chloride 50 ML IV (11:46)
[2020-11-21 11:50] VITALS: BP 160/71; PULSE 78; RESP 16; TEMP 36.3; O2SAT 94
--- NOTE | 2020-11-21 11:50 | HO.PM.IMPN ---
Subjective Subjective Date of Service: 11/21/20 Interval History: follow up cellulitis/bacteremia observed sitting in chair, refusing to elevated legs at this time Review of Systems Review of Systems: Yes all other systems are reviewed and are negative Constitutional Constitutional: Denies chills and Denies fever(s) Cardiovascular Cardiovascular: Denies chest pain Respiratory Respiratory: Denies cough Gastrointestinal Gastrointestinal: Denies abdominal pain Physical Exam Vital Signs: Vital Signs: Last Vital Signs Temp 98.2 F 11/21/20 07:23 Pulse 83 11/21/20 07:23 Resp 18 11/21/20 07:23 BP 146/63 H 11/21/20 07:23 Pulse Ox 93 11/21/20 07:23 Body Mass Index 41.5 Const: Nutritional Appearance: obese Orientation/consciousness: patient oriented x3 HENMT: Head: Yes normocephalic and Yes atraumatic Eyes: Sclerae: sclerae normal Chest: Chest palpation & inspection: normal inspection of the chest Resp: Effort & Inspection: normal respiratory effort and no respiratory distress Cardio: Rate: regular rate Rhythm: regular rhythm GI: Palpation (GI): Soft to palpation and nontender Neuro: General: patient oriented x3 Cranial nerves: Yes CN's II-XII intact bilaterally and Yes Bilaterally intact EOM present Extrem: Other: b/l leg edema; b/l legs dry scaly skin erythema; RLE wound dressed c/d/i dressing; erythema to dorsal surface of feet and toes, improving. new large blister dorsal surface left foot as well medial aspect of left lower leg Objective Data Current Medications Generic Name Dose Route Start Last Admin Trade Name Freq PRN Reason Stop Dose Admin Acetaminophen 650 mg 11/18/20 17:42 11/21/20 07:18 Acetaminophen 325 Mg Tablet PO 650 mg Q6H PRN Administration Pain, Mild (Pain Scale 1-3) Albuterol Sulfate 2 puff 11/18/20 17:42 Albuterol Sulfate 90 Mcg 8 Gm Inhaler INHALE Q4H PRN Shortness Of Breath Or Wheezing Atorvastatin Calcium 80 mg 11/19/20 09:00 11/21/20 07:19 Atorvastatin Calcium 80 Mg Tablet PO 80 mg DAILY DERRELL Administration Budesonide 2 puff 11/18/20 20:00 11/21/20 08:43 Budesonide 180 Mcg Aer.Pow.Ba INHALE 2 puff RBID DERRELL Administration Clopidogrel Bisulfate 75 mg 11/19/20 09:00 11/21/20 07:19 Clopidogrel Bisulfate 75 Mg Tablet PO 75 mg DAILY DERRELL Administration Fluticasone Propionate 2 spray 11/18/20 17:42 Fluticasone Propionate Nasal 16 Gm [place] NOSTRIL-B DAILY PRN congestion Heparin Sodium (Porcine) 5,000 unit 11/18/20 18:00 11/21/20 05:58 Heparin Sodium,Porcine 5,000 Unit/Ml Vial SUBCUT 5,000 unit Q12H DERRELL Administration Ceftriaxone Sodium 2 gm/ 50 mls @ 100 mls/hr 11/21/20 09:00 11/21/20 11:46 Sodium Chloride IV 100 mls/hr Q24H DERRELL Administration Insulin Glargine 12 unit 11/19/20 09:00 11/21/20 07:19 Insulin Glargine,Hum.Rec.Anlog 100 Unit/Ml 10 Ml Vial SUBCUT 12 unit DAILY DERRELL Administration Insulin Glargine 33 unit 11/18/20 21:00 11/20/20 20:36 Insulin Glargine,Hum.Rec.Anlog 100 Unit/Ml 10 Ml Vial SUBCUT 33 unit BEDTIME DERRELL Administration Nystatin 1 appl 11/19/20 15:00 11/21/20 07:20 Nystatin Powder 15 Gm Bottle TOPICAL 1 appl TID DERRELL Administration Protocol Omeprazole 20 mg 11/19/20 06:30 11/21/20 05:58 Omeprazole 20 Mg Capsule.Dr PO 20 mg DAILY@0630 DERRELL Administration Ondansetron HCl 4 mg 11/18/20 17:42 11/18/20 21:32 Ondansetron Hcl 4 Mg/2 Ml Vial IVPUSH 4 mg Q8H PRN Administration Nausea and Vomiting Oxycodone HCl 5 mg 11/18/20 21:30 11/21/20 11:46 Oxycodone Hcl Immed Release 5 Mg Tablet PO 5 mg Q4H PRN Administration Pain, Moderate (Pain Scale 4-6 Pharmacy Consult 1 each 11/18/20 13:56 Consult Rx Perform Med Rec MISCELLANE ONCE PRN Consult order Pharmacy Consult 1 each 11/18/20 17:42 Consult Rx Vancomycin Dosing MISCELLANE DAILY PRN Consult order Prednisone 5 mg 11/19/20 09:00 11/21/20 07:19 Prednisone 5 Mg Tablet PO 5 mg DAILY DERRELL Administration Sitagliptin Phosphate 25 mg 11/19/20 09:00 11/21/20 07:19 Sitagliptin Phosphate 25 Mg Tablet PO 25 mg DAILY DERRELL Administration Sodium Chloride 3 ml 11/19/20 00:00 11/21/20 07:18 0.9 % Sodium Chloride Flush 3 Ml Syringe IVFLUSH 3 ml QSHIFT DERRELL Administration Labs CBC & Chem 7: 11/21/20 05:59 11/21/20 05:59 Microbiology Microbiology Results: Microbiology 11/18/20 14:23 Blood - Venous Blood Culture - Final Streptococcus group c 11/18/20 15:08 Blood - Venous Blood Culture - Preliminary No growth after 48 hours. Assessment and Plan (1) Eschar of wound bed: Status: Acute Assessment and Plan: This is a 80-year-old male of CHF, diabetes, hypertension, dyslipidemia, COPD, CAD admitted with severe sepsis secondary to cellulitis. He has had lower extremity wounds for some time and has been having visiting nurse changing his dressings. He has noticed some increased odor to the right liriano wound and streaking of redness of both of his legs. Severe sepsis. POA. Resolved Cellulitis b/l lower extremities/chronic wounds Bacteremia, 1/2 BCx growing group C strep sensitive to ceftriaxone in the setting of diabetes, chronic edema -change to IV ceftriaxone, can be discharge on ceftin for total 14 days as long as echo negative -ID following -s/p wound debridement by gen surg -echo pending to r/o endocarditis -continue local wound care -elevate legs Fungal rash. Groin and breast area. -Nystatin powder ELSA on CKD3. SCr trending down, close to baseline -d/c IV fluids -follow BMP -avoid nephrotoxins; Lasix on Normocytic anemia. No signs of bleeding. -trend CBC History of diastolic heart failure. No overt failure at this time -hold lasix due to elsa -monitor fluid status closely Diabetes mellitus -sliding scale, ADA diet -continue Lantus -continue Januvia -metformin on hold Hypertension. Blood pressure starting to trend up -will resume losartan -follow blood pressure closely On chronic prednisone ?indication Morbid Obesity. BMI 41.6 -Discussed the importance of weight loss as this may contribute to worsening of other comorbidities. HLD -continue statin gerd -continue omeprazole Dispo: PT eval, will need short-term rehab versus long-term care. pt agreeable DVT prophylaxis with heparin Full code Attending. Dr. Garcia
[2020-11-21 12:41] LABS: Glucose, Whole Blood 252 mg/dL (60-115)
[2020-11-21 13:20] LABS: COVID-19 Test Negative (Negative)
--- NOTE | 2020-11-21 14:31 | P.DS_ITS ---
DS: Providers Provider Date of Service: 11/21/20 <IGNACIO Wisdom - Last Filed: 11/21/20 15:07> 11/21/20 <Julian Garcia MD - Last Filed: 11/21/20 15:56> Date of admission: 11/18/20 17:42 <IGNACIO Wisdom - Last Filed: 11/21/20 15:07> Primary care physician: Unknown Physician <IGNACIO Wisdom - Last Filed: 11/21/20 15:07> Consults: 11/18/20 17:42 Consult to Infectious Diseases Routine Consulting Provider: Yani Perez Reason for consultation: cellulitis Has provider been notified: No 11/18/20 18:27 Consult to General Surgery Routine Consulting Provider: Barry Dozier Reason for consultation: ? debridement Has provider been notified: No <IGNACIO Wisdom - Last Filed: 11/21/20 15:07> DS: Diagnosis Discharge Diagnosis (1) Severe sepsis: Status: Acute <IGNACIO Wisdom - Last Filed: 11/21/20 15:07> (2) Bacteremia: Status: Acute <IGNACIO Wisdom - Last Filed: 11/21/20 15:07> (3) Cellulitis: Status: Acute <IGNACIO Wisdom - Last Filed: 11/21/20 15:07> (4) ELSA (acute kidney injury): Status: Acute <IGNACIO Wisdom - Last Filed: 11/21/20 15:07> (5) Eschar of wound bed: Status: Acute <IGNACIO Wisdom - Last Filed: 11/21/20 15:07> DS: Medications Discharge Medications Home Medications: Home Medications Medication Instructions Recorded Confirmed albuterol sulfate 2 inh INHALATION Q4H PRN 11/18/20 11/18/20 atorvastatin 80 mg PO DAILY 11/18/20 11/18/20 budesonide [Pulmicort Flexhaler] 2 puff PO BID 11/18/20 11/18/20 clopidogrel 75 mg PO DAILY 11/18/20 11/18/20 fluticasone propionate 2 spray INTRANASAL DAILY PRN 11/18/20 11/18/20 furosemide 120 mg PO DAILY 11/18/20 11/18/20 insulin aspart U-100 [Novolog 4 - 8 unit SUBCUT DIRECTED 11/18/20 11/18/20 Flexpen U-100 Insulin] insulin detemir U-100 [Levemir 18 unit SUBCUT QAM 11/18/20 11/18/20 FlexTouch U-100 Insuln] insulin detemir U-100 [Levemir 48 unit SUBCUT QPM 11/18/20 11/18/20 FlexTouch U-100 Insuln] losartan 50 mg PO DAILY 11/18/20 11/18/20 metformin 1,000 mg PO DAILY 11/18/20 11/18/20 pantoprazole 40 mg PO DAILY 11/18/20 11/18/20 prednisone 5 mg PO DAILY 11/18/20 11/18/20 sitagliptin [Januvia] 25 mg PO DAILY 11/18/20 11/18/20 <IGNACIO Wisdom - Last Filed: 11/21/20 15:07> DS: Summary Hospital Course Hospital Course: 72-year-old man presented to the ER with complaints of worsening weakness over the last several days. He denies fever, chills, nausea, vomiting, diarrhea. He does have a history of bilateral lower extremity wounds and has visiting nurse who changes the dressings. He has been having difficulty even getting up and has noticed red streaking up both of his legs. He has a large wound malodorous wound to his right liriano area with erythema and edema to both feet. 20.3, no fever. He had 1 episode of hypoxia with oxygen saturation of 89% however this did improve to 97% with 2 L of oxygen. Chest x-ray showed some atelectasis no consolidation or effusion. Venous duplex ultrasound was negative for DVT to bilateral lower extremities. Was noted to be elevated 2.41. Total creatinine kinase 500, BNP 242 with no overt heart failure. Coronavirus PCR negative, Patient was started on vancomycin, Zosyn. admitted for further management and treatment of severe sepsis secondary to cellulitis Sepsis secondary to lower extremity cellulitis on a background of chronic leg edema, diabetes and morbid obesity. Patient was initially started on vancomycin and Zosyn. Leukocytosis began trending down. Erythema has started to improve. One out of 2 blood cultures returned positive for Gram-positive cocci in chains. Final blood culture results indicated Streptococcus group C sensitive to ceftriaxone. His vancomycin and Zosyn was discontinued and he was started on IV ceftriaxone. He underwent echocardiogram which was technically difficult and unable to rule out vegetation. After consulting with Infectious Diseases, she reported no need for BRIAN or repeat blood cultures. She recommended 14 days of oral Ceftin on discharge. Patient was seen in consultation by General surgery and had right lower extremity wound debridement. He should continue to follow-up in the Wound Clinic. Surgery has recommended daily wet-to-dry dressings and then wrapping with Kerlix. Recommend keeping legs elevated. Follow up in wound care clinic. ELSA on CKD3. Losartan and Lasix were initially held. He was treated with gentle IV fluid. Creatinine improved from 2.41-1.71 which is near baseline. Repeat BMP should be checked on Tuesday. If creatinine is stable Lasix can be resumed due to leg edema HFpEF. No evidence of overt fluid overload. Patient has chronic leg edema. No respiratory symptoms. No hypoxia. Lasix was held due to ELSA. Resume Lasix Tue if creatinine stable. monitor fluid statuss. Hypertension. Losartan was initially held in the setting of sepsis and ELSA. Blood pressure now rebounding. Would resume losartan and monitor creatinine. Anemia. H/H remained stable. Patient was seen in evaluation by Physical therapy who recommended short-term rehab. Attending Attestation: Patient seen and examined independently and I was present during baldwin portion of E/M service. Agree with IGNACIO Garcia's history, physical, assessment, and plan. <IGNACIO Wisdom - Last Filed: 11/21/20 15:07> Time Spent with Patient Time attestation: Total time spent providing and/or coordinating discharge services: <IGNACIO Wisdom - Last Filed: 11/21/20 15:07> Discharge coordination time: Greater than 30 minutes <IGNACIO Wisdom - Last Filed: 11/21/20 15:07> Quality: Stroke Does the patient have a stroke diagnosis?: No <IGNACIO Wisdom - Last Filed: 11/21/20 15:07> Physical Exam Vital Signs: Vital Signs: Last Vital Signs Temp 97.3 F 11/21/20 11:50 Pulse 78 11/21/20 11:50 Resp 16 11/21/20 11:50 BP 160/71 H 11/21/20 11:50 Pulse Ox 94 11/21/20 11:50 Body Mass Index 41.5 <IGNACIO Wisdom - Last Filed: 11/21/20 15:07> Const: Nutritional Appearance: obese <IGNACIO Wisdom - Last Filed: 11/21/20 15:07> Orientation/consciousness: patient oriented x3 <IGNACIO Wisdom - Last Filed: 11/21/20 15:07> HENMT: Head: Yes normocephalic and Yes atraumatic <IGNACIO Wisdom - Last Filed: 11/21/20 15:07> Eyes: Sclerae: sclerae normal <IGNACIO Wisdom - Last Filed: 11/21/20 15:07> Chest: Chest palpation & inspection: normal inspection of the chest <IGNACIO Wisdom - Last Filed: 11/21/20 15:07> Resp: Effort & Inspection: normal respiratory effort and no respiratory distress <IGNACIO Wisdom - Last Filed: 11/21/20 15:07> Cardio: Rate: regular rate <IGNACIO Wisdom - Last Filed: 11/21/20 15:07> Rhythm: regular rhythm <IGNACIO Wisdom - Last Filed: 11/21/20 15:07> GI: Palpation (GI): Soft to palpation and nontender <IGNACIO Wisdom - Last Filed: 11/21/20 15:07> Neuro: General: patient oriented x3 <IGNACIO Wisdom - Last Filed: 11/21/20 15:07> Cranial nerves: Yes CN's II-XII intact bilaterally and Yes Bilaterally intact EOM present <IGNACIO Wisdom - Last Filed: 11/21/20 15:07> Extrem: Other: b/l leg edema; b/l legs dry scaly skin erythema; RLE wound d ressed c/d/i dressing; erythema to dorsal surface of feet and toes, improving. new large blister dorsal surface left foot as well medial aspect of left lower leg <IGNACIO Wisdom - Last Filed: 11/21/20 15:07> DS: Data Data Completed and Pending Labs on day of discharge: Laboratory Results - last 24 hr 11/20/20 11/20/20 11/20/20 16:27 16:29 20:19 WBC RBC Hgb Hct MCV MCH MCHC RDW Plt Count MPV Absolute Nucleated RBC Nucleated RBC % (auto) Sodium Potassium Chloride Carbon Dioxide Anion Gap BUN Creatinine Estim Creat Clear Calc Estimated GFR POC Glucose 213 H 224 H Random Glucose Calcium Vancomycin Trough 12.6 COVID-19 ([facility]) [facility] 11/21/20 11/21/20 11/21/20 05:59 05:59 07:20 WBC 15.6 H RBC 3.57 L Hgb 10.1 L Hct 32.4 L MCV 90.8 MCH 28.3 MCHC 31.2 RDW 14.7 Plt Count 234 MPV 11.2 Absolute Nucleated RBC 0.000 Nucleated RBC % (auto) 0.0 Sodium 139 Potassium 3.9 Chloride 108 Carbon Dioxide 18 L Anion Gap 17 BUN 49 H Creatinine 1.71 H Estim Creat Clear Calc 48.5 Estimated GFR 39 POC Glucose 168 H Random Glucose 167 H D Calcium 7.8 L Vancomycin Trough COVID-19 (KAELA) COVID-19 [employer] 11/21/20 11/21/20 11:47 12:00 WBC RBC Hgb Hct MCV MCH MCHC RDW Plt Count MPV Absolute Nucleated RBC Nucleated RBC % (auto) Sodium Potassium Chloride Carbon Dioxide Anion Gap BUN Creatinine Estim Creat Clear Calc Estimated GFR POC Glucose 252 H Random Glucose Calcium Vancomycin Trough COVID-19 ([facility]) Negative [facility] See Note Preliminary micro results at discharge 11/18/20 15:08 Blood Culture - Preliminary Blood - Venous No growth after 48 hours. <IGNACIO Wisdom - Last Filed: 11/21/20 15:07> Discharge Plan Discharge Patient Disposition: Xfer SNF <IGNACIO Wisdom - Last Filed: 11/21/20 15:07> Discharge Diagnosis: Severe sepsis Group C strep bacteremia Cellulitis ELSA on CKD3 <IGNACIO Wisdmo - Last Filed: 11/21/20 15:07> Severe sepsis Group C strep bacteremia Cellulitis ELSA on CKD3 <Julian Garcia MD - Last Filed: 11/21/20 15:56> Referrals: Physician,Unknown [Primary Care Provider] - 1 Week <IGNACIO Wisdom - Last Filed: 11/21/20 15:07> Discharge Medications: New cefuroxime axetil 500 mg tablet 500 mg PO BID 14 Days Qty: 28 RF: 0 Continued losartan 50 mg tablet 50 mg PO DAILY RF: 0 atorvastatin 80 mg tablet 80 mg PO DAILY RF: 0 prednisone 5 mg tablet 5 mg PO DAILY RF: 0 clopidogrel 75 mg tablet 75 mg PO DAILY RF: 0 pantoprazole 40 mg tablet,delayed release (DR/EC) 40 mg PO DAILY RF: 0 metformin 1,000 mg tablet 1,000 mg PO DAILY RF: 0 albuterol sulfate 90 mcg/actuation HFA aerosol inhaler 2 inh inhalation Q4H PRN (Reason: Shortness Of Breath Or Wheezing) RF: 0 fluticasone propionate 50 mcg/actuation spray,suspension 2 spray intranasal DAILY PRN (Reason: congestion) RF: 0 insulin aspart U-100 [Novolog Flexpen U-100 Insulin] 100 unit/mL (3 mL) insulin pen 4 - 8 unit subcut DIRECTED RF: 0 Levemir FlexTouch U-100 Insuln 100 unit/mL (3 mL) insulin pen 18 unit subcut QAM RF: 0 Levemir FlexTouch U-100 Insuln 100 unit/mL (3 mL) insulin pen 48 unit subcut QPM RF: 0 Januvia 25 mg tablet 25 mg PO DAILY RF: 0 Pulmicort Flexhaler 180 mcg/actuation aerosol powdr breath activated 2 puff PO BID RF: 0 Held furosemide 40 mg tablet 120 mg PO DAILY RF: 0 Hold Instructions: Resume on 11/24/20. resume for leg edema, follow kidney function <IGNACIO Wisdom - Last Filed: 11/21/20 15:07> Discharge Orders: Discharge Order (Routine); Ordered 11/21/20 Ordered By: Kandi Howell <IGNACIO Wisdom - Last Filed: 11/21/20 15:07> Activity on Discharge: As tolerated <IGNACIO Wisdom - Last Filed: 11/21/20 15:07> As tolerated <Julian Garcia MD - Last Filed: 11/21/20 15:56> Stand Alone Forms: Patient Portal Discharge page <IGNACIO Wisdom - Last Filed: 11/21/20 15:07> Care Plan Goals: See below <IGNACIO Wisdom - Last Filed: 11/21/20 15:07> Health Concerns: Bacteremia Leg cellulitis Leg edema ELSA <IGNACIO Wisdom - Last Filed: 11/21/20 15:07> Plan of Treatment: Group C strep bacteremia. Complete 14 days of antibiotics ELSA.Creatinine back to baseline. Repeat BMP on Tuesday. Resume Lasix if creatinine is stable Call PCP to schedule follow-up appointment Call wound care center to schedule follow-up appointment Keep legs elevated Continue wound care with daily wet to dry dressings wrapped in kerlix <IGNACIO Wisdom - Last Filed: 11/21/20 15:07> Assessment: See discharge summary <IGNACIO Wisdom - Last Filed: 11/21/20 15:07>
--- NOTE | 2020-11-21 15:24 | MHC.CM.PN ---
PT [facility]AT 4:30PM [facility]
--- NOTE | 2020-11-21 15:43 | P.PNGS_ITS ---
Subjective Subjective Date of Service: 11/21/20 Interval history: Feels better Both lower legs remain very edematous Says his pain is better Physical Exam Vital Signs: Vital Signs: Last Vital Signs Temp 97.3 F 11/21/20 11:50 Pulse 78 11/21/20 11:50 Resp 16 11/21/20 11:50 BP 160/71 H 11/21/20 11:50 Pulse Ox 94 11/21/20 11:50 Body Mass Index 41.5 Laboratory Results - last 24 hr 11/20/20 11/20/20 11/20/20 16:27 16:29 20:19 WBC RBC Hgb Hct MCV MCH MCHC RDW Plt Count MPV Absolute Nucleated RBC Nucleated RBC % (a uto) Sodium Potassium Chloride Carbon Dioxide Anion Gap BUN Creatinine Estim Creat Clear Calc Estimated GFR POC Glucose 213 H 224 H Random Glucose Calcium Vancomycin Trough 12.6 COVID-19 ([facility]) [facility] 11/21/20 11/21/20 11/21/20 05:59 05:59 07:20 WBC 15.6 H RBC 3.57 L Hgb 10.1 L Hct 32.4 L MCV 90.8 MCH 28.3 MCHC 31.2 RDW 14.7 Plt Count 234 MPV 11.2 Absolute Nucleated RBC 0.000 Nucleated RBC % (a uto) 0.0 Sodium 139 Potassium 3.9 Chloride 108 Carbon Dioxide 18 L Anion Gap 17 BUN 49 H Creatinine 1.71 H Estim Creat Clear Calc 48.5 Estimated GFR 39 POC Glucose 168 H Random Glucose 167 H D Calcium 7.8 L Vancomycin Trough COVID-19 ([facility]) COVID-19 [employer] 11/21/20 11/21/20 11:47 12:00 WBC RBC Hgb Hct MCV MCH MCHC RDW Plt Count MPV Absolute Nucleated RBC Nucleated RBC % (a uto) Sodium Potassium Chloride Carbon Dioxide Anion Gap BUN Creatinine Estim Creat Clear Calc Estimated GFR POC Glucose 252 H Random Glucose Calcium Vancomycin Trough COVID-19 ([facility]) Negative [facility] See Note Const: Other: Sitting up on chair, appears comfortable Resp: Effort & Inspection: normal respiratory effort Cardio: Rhythm: regular rhythm GI: Palpation (GI): Soft to palpation Extrem: Other: Large ulcer on the lateral aspect of the right lower leg clean, cellulitis much improved, no pus He has bullous lesions on the left leg and the foot He has significant edema both lower legs and feet Progress Note: A&P Assessment and plan (1) Eschar of wound bed: Status: Acute Assessment and Plan: Status post debridement of ulcer right lower leg Wound much boiler cleaner - wet to dry dressings applied, wrapped leg with Kerlix Cellulitis much better Continues to have significant edema both lower extremities - chronic I drained the bullae on the left leg and left foot by opening this with scissors and debriding the skin Patient is to be discharged to rehab/SNF Leg elevation Daily wound care Fall Risk Details Current Medications: Current Medications Generic Name Dose Route Start Last Admin Trade Name Freq PRN Reason Stop Dose Admin Acetaminophen 650 mg 11/18/20 17:42 11/21/20 07:18 Acetaminophen 325 Mg Tablet PO 650 mg Q6H PRN Administration Pain, Mild (Pain Scale 1-3) Albuterol Sulfate 2 puff 11/18/20 17:42 Albuterol Sulfate 90 Mcg 8 Gm Inhaler INHALE Q4H PRN Shortness Of Breath Or Wheezing Atorvastatin Calcium 80 mg 11/19/20 09:00 11/21/20 07:19 Atorvastatin Calcium 80 Mg Tablet PO 80 mg DAILY DERRELL Administration Budesonide 2 puff 11/18/20 20:00 11/21/20 08:43 Budesonide 180 Mcg Aer.Pow.Ba INHALE 2 puff RBID DERRELL Administration Clopidogrel Bisulfate 75 mg 11/19/20 09:00 11/21/20 07:19 Clopidogrel Bisulfate 75 Mg Tablet PO 75 mg DAILY DERRELL Administration Fluticasone Propionate 2 spray 11/18/20 17:42 Fluticasone Propionate Nasal 16 Gm [place] NOSTRIL-B DAILY PRN congestion Heparin Sodium (Porcine) 5,000 unit 11/18/20 18:00 11/21/20 05:58 Heparin Sodium,Porcine 5,000 Unit/Ml Vial SUBCUT 5,000 unit Q12H DERRELL Administration Ceftriaxone Sodium 2 gm/ 50 mls @ 100 mls/hr 11/21/20 09:00 11/21/20 12:33 Sodium Chloride IV Infused Q24H DERRELL Infusion Insulin Glargine 12 unit 11/19/20 09:00 11/21/20 07:19 Insulin Glargine,Hum.Rec.Anlog 100 Unit/Ml 10 Ml Vial SUBCUT 12 unit DAILY DERRELL Administration Insulin Glargine 33 unit 11/18/20 21:00 11/20/20 20:36 Insulin Glargine,Hum.Rec.Anlog 100 Unit/Ml 10 Ml Vial SUBCUT 33 unit BEDTIME DERRELL Administration Losartan Potassium 50 mg 11/22/20 09:00 Losartan Potassium 50 Mg Tablet PO DAILY [facility] Protocol Nystatin 1 appl 11/19/20 15:00 11/21/20 07:20 Nystatin Powder 15 Gm Bottle TOPICAL 1 appl TID DERRELL Administration Protocol Omeprazole 20 mg 11/19/20 06:30 11/21/20 05:58 Omeprazole 20 Mg Capsule.Dr PO 20 mg DAILY@0630 DERRELL Administration Ondansetron HCl 4 mg 11/18/20 17:42 11/18/20 21:32 Ondansetron Hcl 4 Mg/2 Ml Vial IVPUSH 4 mg Q8H PRN Administration Nausea and Vomiting Oxycodone HCl 5 mg 11/18/20 21:30 11/21/20 11:46 Oxycodone Hcl Immed Release 5 Mg Tablet PO 5 mg Q4H PRN Administration Pain, Moderate (Pain Scale 4-6 Pharmacy Consult 1 each 11/18/20 13:56 Consult Rx Perform Med Rec MISCELLANE ONCE PRN Consult order Pharmacy Consult 1 each 11/18/20 17:42 Consult Rx Vancomycin Dosing MISCELLANE DAILY PRN Consult order Prednisone 5 mg 11/19/20 09:00 11/21/20 07:19 Prednisone 5 Mg Tablet PO 5 mg DAILY DERRELL Administration Sitagliptin Phosphate 25 mg 11/19/20 09:00 11/21/20 07:19 Sitagliptin Phosphate 25 Mg Tablet PO 25 mg DAILY DERRELL Administration Sodium Chloride 3 ml 11/19/20 00:00 11/21/20 07:18 0.9 % Sodium Chloride Flush 3 Ml Syringe IVFLUSH 3 ml QSHIFT DERRELL Administration Time Spent With Patient Time: Total time spent is greater than 50% in coordination of care (as documented) at patient's floor/unit and/or counseling patient: Time with patient: 15 - 24 minutes
== END 2020-11-21 18:00 | disposition skilled nursing facility (03) | DRG 872 ==
LOC: HO.ED 16:12 → HO.S3 18:06
PROVIDERS: Nurse Practitioner Acute Care; Physician Assistant Medical; Admitting Provider Internal Medicine; Emergency Provider Emergency Medicine; Visit Provider Family Medicine
DX: A41.9 Sepsis, unspecified organism (principal); L03.116 Cellulitis of left lower limb; L03.115 Cellulitis of right lower limb; N17.9 Acute kidney failure, unspecified; I13.0 Hypertensive heart and chronic kidney disease with heart failure and stage 1 through stage 4 chronic kidney disease, or unspecified chronic kidney disease; I50.32 Chronic diastolic (congestive) heart failure; B48.8 Other specified mycoses; Z68.41 Body mass index [BMI] 40.0-44.9, adult; R65.20 Severe sepsis without septic shock; E11.22 Type 2 diabetes mellitus with diabetic chronic kidney disease; I25.2 Old myocardial infarction; D72.829 Elevated white blood cell count, unspecified; B95.4 Other streptococcus as the cause of diseases classified elsewhere; B35.6 Tinea cruris; N18.30 Chronic kidney disease, stage 3 unspecified; D63.1 Anemia in chronic kidney disease; E66.01 Morbid (severe) obesity due to excess calories; E11.628 Type 2 diabetes mellitus with other skin complications; L89.899 Pressure ulcer of other site, unspecified stage; K21.9 Gastro-esophageal reflux disease without esophagitis; Z20.822 Contact with and (suspected) exposure to COVID-19; Z99.81 Dependence on supplemental oxygen; Z87.891 Personal history of nicotine dependence; Z79.4 Long term (current) use of insulin; Z79.02 Long term (current) use of antithrombotics/antiplatelets; Z79.51 Long term (current) use of inhaled steroids; Z79.899 Other long term (current) drug therapy
CPT/HCPCS: 36415; 71045; 80048; 80076; 80202; 81001; 82550; 82947; 83605; 83735; 83880; 85025; 85027; 85610; 85730; 87040; 87147; 87186; 87205; 87635; 93005; 93306; 93970; 96365; 96366; 96368; 96375; 96376; 97162; 99285; J0696; J2270; J2405; J2543; J3370